=== PATIENT | female | born 1945 | race Caucasian/White ===

== ENCOUNTER 2016-10-22 12:14 | Observation (INO) | payer MEDICARE ==
[2016-10-22] MEDS ORDERED: ALBUTEROL NEBULIZED 2.5 MG/3 ML INHALATION STA (12:22)
[2016-10-22] MEDS ORDERED: methylPREDNISolone SOD SUCCI 125 MG/2 ML VIAL IV STA (12:22)
[2016-10-22] MEDS ORDERED: SODIUM CHLORIDE 0.9% 500 ML IV STA (12:22)
--- NOTE | 2016-10-22 12:29 | ED ---
General Adult HPI - General Stated complaint: URIEL Time Seen by Provider: 10/22/16 12:15 Source: RN notes reviewed - History of Present Illness Initial comments: This is a 70-year-old female with a past medical history significant for COPD. Patient states starting yesterday he started having difficulty breathing and it got worse today she went to see her primary medical care doctor Dr. Rodrigues.. Dr. Rodrigues stated that the patient was having a COPD exacerbation 1 the patient admitted to the hospital. Patient states she has been coughing and coughing up some sputum. Patient denies any chest pain or palpitations. Patient denies any headache patient denies any numbness or weakness. Patient denies any lightheadedness dizziness or near syncopal episode. Patient denies abdominal pain patient denies nausea vomiting or diarrhea. - Related Data Home Medications Medication Instructions Recorded Confirmed ALPRAZolam [Xanax] 0.25 mg PO TID PRN 10/22/16 10/22/16 Albuterol Nebulized [Ventolin 2.5 mg INHALATION RT-TID PRN 10/22/16 10/22/16 Nebulized] Budesonide/Formoterol Fumarate 2 puff INHALATION RT-BID 10/22/16 10/22/16 [Symbicort 160-4.5 Mcg Inhaler] Citalopram Hydrobromide [CeleXA] 20 mg PO DAILY 10/22/16 10/22/16 Lutein 10 mg PO DAILY 10/22/16 10/22/16 Montelukast [Singulair] 10 mg PO DAILY 10/22/16 10/22/16 Primidone [Mysoline] 25 mg PO HS 10/22/16 10/22/16 Vit C/E/Zn/Coppr/Lutein/Zeaxan 1 cap PO DAILY 10/22/16 10/22/16 [Preservision Areds 2 Softgel] Allergies Allergy/AdvReac Type Severity Reaction Status Date / Time No Known Allergies Allergy Verified 10/22/16 13:42 Review of Systems ROS Statement: Those systems with pertinent positive or pertinent negative responses have been documented in the HPI. ROS Other: All systems not noted in ROS Statement are negative. General Exam - General Exam Comments Initial Comments: GENERAL: Patient is well-developed and well-nourished. Patient is nontoxic and well- hydrated and is in mild distress. ENT: Neck is soft and supple. No significant lymphadenopathy is noted. Oropharynx is clear. Moist mucous membranes. Neck has full range of motion without eliciting any pain. EYES: The sclera were anicteric and conjunctiva were pink and moist. Extraocular movements were intact and pupils were equal round and reactive to light. Eyelids were unremarkable. PULMONARY: Diminished breath sounds throughout CARDIOVASCULAR: There is a regular rate and rhythm without any murmurs gallops or rubs. ABDOMEN: Soft and nontender with normal bowel sounds. No palpable organomegaly was noted. There is no palpable pulsatile mass. SKIN: Skin is clear with no lesions or rashes and otherwise unremarkable. NEUROLOGIC: Patient is alert and oriented x3. Cranial nerves II through XII are grossly intact. Motor and sensory are also intact. Normal speech, volume and content. Symmetrical smile. MUSCULOSKELETAL: Normal extremities with adequate strength and full range of motion. No lower extremity swelling or edema. No calf tenderness. LYMPHATICS: No significant lymphadenopathy is noted PSYCHIATRIC: Normal psychiatric evaluation. Normal interpersonal interactions appears functionally intact in deals appropriately with others. No signs of depression. No signs of anxiety. Course Vital Signs 10/22/16 10/22/16 10/22/16 12:17 12:48 13:06 Temperature 99.1 F Pulse Rate 89 88 88 Respiratory 16 Rate Blood Pressure 131/66 O2 Sat by Pulse 98 Oximetry 10/22/16 10/22/16 13:28 13:38 Temperature 98.4 F Pulse Rate 98 Respiratory 16 16 Rate Blood Pressure 118/57 O2 Sat by Pulse 95 Oximetry Medical Decision Making - Medical Decision Making EKG shows normal sinus rhythm at 97 bpm. It was 124 QRS 76 QT interval 334 QTC is 424. Patient's EKG shows no segment elevations or depressions or T-wave abdomen is noted Chest x-ray shows COPD. I will back and reevaluate the patient after she received multiple breathing treatments as well as steroids she still was diminished throughout and had some extra wheezing and the patient did not feel much better. I decided this point to admit the patient. I spoke with Dr. Michele and he agreed to admit the patient admitted the patient I wrote admitting orders. - Lab Data Result diagrams: 10/22/16 13:15 10/22/16 13:15 Lab Results 10/22/16 10/22/16 10/22/16 Range/Units 13:15 13:15 13:15 WBC 17.0 H (3.8-10.6) k/uL RBC 4.50 (3.80-5.40) m/uL Hgb 13.5 (11.4-16.0) gm/dL Hct 41.5 (34.0-46.0) % MCV 92.3 (80.0-100.0) fL MCH 30.1 (25.0-35.0) pg MCHC 32.6 (31.0-37.0) g/dL RDW 13.9 (11.5-15.5) % Plt Count 225 (150-450) k/uL Neutrophils % 94 % Lymphocytes % 3 % Monocytes % 2 % Eosinophils % 0 % Basophils % 0 % Neutrophils # 15.9 H (1.3-7.7) k/uL Lymphocytes # 0.5 L (1.0-4.8) k/uL Monocytes # 0.4 (0-1.0) k/uL Eosinophils # 0.1 (0-0.7) k/uL Basophils # 0.0 (0-0.2) k/uL PT (9.0-12.0) sec INR (<1.1) APTT (22.0-30.0) sec Sodium 138 (137-145) mmol/L Potassium 4.2 (3.5-5.1) mmol/L Chloride 98 (98-107) mmol/L Carbon Dioxide 30 (22-30) mmol/L Anion Gap 10 mmol/L BUN 12 (7-17) mg/dL Creatinine 0.54 (0.52-1.04) mg/dL Est GFR (MDRD) Af Amer >60 (>60 ml/min/1.73 sqM) Est GFR (MDRD) Non-Af >60 (>60 ml/min/1.73 sqM) Glucose 122 H (74-99) mg/dL Calcium 9.2 (8.4-10.2) mg/dL Magnesium 1.7 (1.6-2.3) mg/dL Total Bilirubin 1.1 (0.2-1.3) mg/dL AST 21 (14-36) U/L ALT 28 (9-52) U/L Alkaline Phosphatase 75 (38-126) U/L Total Creatine Kinase 101 (30-135) U/L CK-MB (CK-2) 0.8 (0.0-2.4) ng/mL CK-MB (CK-2) Rel Index 0.8 Troponin I <0.012 (0.000-0.034) ng/mL Total Protein 7.3 (6.3-8.2) g/dL Albumin 4.0 (3.5-5.0) g/dL 10/22/16 Range/Units 13:15 WBC (3.8-10.6) k/uL RBC (3.80-5.40) m/uL Hgb (11.4-16.0) gm/dL Hct (34.0-46.0) % MCV (80.0-100.0) fL MCH (25.0-35.0) pg MCHC (31.0-37.0) g/dL RDW (11.5-15.5) % Plt Count (150-450) k/uL Neutrophils % % Lymphocytes % % Monocytes % % Eosinophils % % Basophils % % Neutrophils # (1.3-7.7) k/uL Lymphocytes # (1.0-4.8) k/uL Monocytes # (0-1.0) k/uL Eosinophils # (0-0.7) k/uL Basophils # (0-0.2) k/uL PT 12.2 H (9.0-12.0) sec INR 1.2 (<1.1) APTT 25.2 (22.0-30.0) sec Sodium (137-145) mmol/L Potassium (3.5-5.1) mmol/L Chloride (98-107) mmol/L Carbon Dioxide (22-30) mmol/L Anion Gap mmol/L BUN (7-17) mg/dL Creatinine (0.52-1.04) mg/dL Est GFR (MDRD) Af Amer (>60 ml/min/1.73 sqM) Est GFR (MDRD) Non-Af (>60 ml/min/1.73 sqM) Glucose (74-99) mg/dL Calcium (8.4-10.2) mg/dL Magnesium (1.6-2.3) mg/dL Total Bilirubin (0.2-1.3) mg/dL AST (14-36) U/L ALT (9-52) U/L Alkaline Phosphatase (38-126) U/L Total Creatine Kinase (30-135) U/L CK-MB (CK-2) (0.0-2.4) ng/mL CK-MB (CK-2) Rel Index Troponin I (0.000-0.034) ng/mL Total Protein (6.3-8.2) g/dL Albumin (3.5-5.0) g/dL Critical Care Time Critical Care Time: Yes Total Critical Care Time: 35 Disposition Clinical Impression: Acute exacerbation of chronic obstructive airways disease Disposition: ADMITTED IP TO THIS HOSP Referrals: Jennifer Rodrigues MD [Primary Care Provider] - 1-2 days Time of Disposition: 14:53
--- NOTE | 2016-10-22 12:49 | XR ---
EXAMINATION TYPE: XR chest 2V DATE OF EXAM: 10/22/2016 12:43 PM COMPARISON: 09/15/2013 INDICATION: Difficulty breathing TECHNIQUE: Frontal and lateral views of the chest are obtained. FINDINGS: The heart size is normal. The pulmonary vasculature is normal. Some mild right lower lobe infiltrate is present. There is blunting of the right costophrenic angle. Small posterior pleural effusion is present. IMPRESSION: 1. Mild right lower lobe infiltrate with a minimal right pleural effusion.
[2016-10-22 13:44] LABS: Basophils % (A) 0 %; CHCM 32.6; Eosinophils # (A) 0.1 k/uL (0-0.7); Eosinophils % (A) 0 %; HCT 41.5 % (34.0-46.0); HDW 2.41; HGB 13.5 gm/dL (11.4-16.0); Luc # (Auto) 0.05; Luc % (Auto) 0; Lymphocytes # (A) 0.5 k/uL (1.0-4.8); Lymphocytes % (A) 3 %; MCH 30.1 pg (25.0-35.0); MCHC 32.6 g/dL (31.0-37.0); MCV 92.3 fL (80.0-100.0); Monocytes # (A) 0.4 k/uL (0-1.0); Monocytes % (A) 2 %; Neutrophils # (A) 15.9 k/uL (1.3-7.7); Neutrophils % (A) 94 %; RDW 13.9 % (11.5-15.5); WBC (Perox) 17.29
[2016-10-22 13:58] LABS: ALT 28 U/L (9-52); AST 21 U/L (14-36); Alkaline Phosphatase 75 U/L (38-126); Anion Gap 10 mmol/L; Blood Urea Nitrogen 12 mg/dL (7-17); Calcium 9.2 mg/dL (8.4-10.2); Carbon Dioxide 30 mmol/L (22-30); Chloride 98 mmol/L (98-107); Creatine Kinase 101 U/L (30-135); Glucose 122 mg/dL (74-99); Magnesium 1.7 mg/dL (1.6-2.3); Non-African American GFR(MDRD) >60 (>60 ml/min/1.73 sqM); Potassium 4.2 mmol/L (3.5-5.1); Sodium 138 mmol/L (137-145); Total Bilirubin 1.1 mg/dL (0.2-1.3); Total Protein 7.3 g/dL (6.3-8.2)
[2016-10-22 14:10] LABS: Creatine Kinase MB 0.8 ng/mL (0.0-2.4); Troponin I <0.012 ng/mL (0.000-0.034)
[2016-10-22 14:12] LABS: INR 1.2 (<1.1); Partial Thromboplastin Time 25.2 sec (22.0-30.0); Prothrombin Time 12.2 sec (9.0-12.0)
[2016-10-22] MEDS ORDERED: ACETAMINOPHEN TAB 325 MG TAB PO STA (15:09)
[2016-10-22] MEDS: IPRATROPIUM-ALBUTEROL 3 ML NEB INHALATION SCH ×2 (15:45→19:49)
[2016-10-22 16:24] VITALS: BMI 20.4
[2016-10-22] MEDS: methylPREDNISolone SOD SUCCI 125 MG/2 ML VIAL IV SCH (17:57)
[2016-10-23] MEDS: methylPREDNISolone SOD SUCCI 125 MG/2 ML VIAL IV SCH ×2 (02:04→05:55)
[2016-10-23] MEDS: IPRATROPIUM-ALBUTEROL 3 ML NEB INHALATION SCH ×4 (07:19→19:18)
--- NOTE | 2016-10-23 11:51 | HP ---
DATE OF ADMISSION: Patient is a 70-year-old admitted with COPD exacerbation and patient was having shortness of breath, has been going on for about 3 to 4 days and patient quit smoking years ago. Patient does have COPD with chronic hypercapnic respiratory failure, uses 2 L of oxygen at home. Patient is feeling better than yesterday, but still quite a bit short of breath. I cannot hear much of air entry into bilateral lung rocha because of which patient may need to stay a day or two more and patient follows with Dr. Webster as an outpatient. Patient occasionally coughing, not bringing up much. Denied any fever, chills and patient's chest x-ray showed minimal infiltrate in the right lower lung field. I cannot completely rule out pneumonic process. Patient does have leukocytosis. REVIEW OF SYSTEMS: CONSTITUTIONAL: No fever, no malaise, no fatigue. HEENT: No recent visual problems or hearing problems. Denied any sore throat. CARDIOVASCULAR: No chest pain, orthopnea, PND, no palpitations, no syncope. PULMONARY: As described in HPI. GASTROINTESTINAL: No diarrhea, no nausea, no vomiting, no abdominal pain. Normoactive bowel sounds. NEUROLOGICAL: No headaches, no weakness, no numbness. HEMATOLOGICAL: Denies any bleeding or petechiae. GENITOURINARY: Denies any burning micturition, frequency, or urgency. MUSCULOSKELETAL/RHEUMATOLOGICAL: Denies any joint pain, swelling, or any muscle pain. ENDOCRINE: Denies any polyuria or polydipsia. The rest of the 14 point review of systems is negative. Home medications include: 1. Xanax. 2. Albuterol. 3. Budesonide/formoterol. 4. Citalopram. 5. Montelukast. 6. Primidone. 7. Vitamin E. ALLERGIES: No known drug allergies. PAST MEDICAL HISTORY: Significant for COPD, tumor removed from the colon and anxiety, depression. FAMILY HISTORY: Significant for colon cancer. SOCIAL HISTORY: Patient quit smoking a few years ago. Denied any alcohol abuse or any drug abuse. PHYSICAL EXAMINATION: VITAL SIGNS: Temperature 97.1, pulse of 72, pulse has gone up as high as 102, respiratory rate of 18, blood pressure is 136/64, saturating at 94% on 2 L of O2 by nasal cannula although patient clinically looks tremulous and a little short of breath even at rest. GENERAL: The patient is alert and oriented x3, not in any acute distress. Well developed, well nourished. HEENT: Pupils are round and equally reacting to light. EOMI. No scleral icterus. No conjunctival pallor. Normocephalic, atraumatic. No pharyngeal erythema. No thyromegaly. CARDIOVASCULAR: S1 and S2 present. No murmurs, rubs, or gallops. PULMONARY: I did not hear much of air entry into bilateral lung rocha. No wheezing was appreciated. No crackles are appreciated. The patient is occasionally using ( ) breathing. ABDOMEN: Soft, nontender, nondistended, normoactive bowel sounds. No palpable organomegaly. MUSCULOSKELETAL: No joint swelling or deformity. EXTREMITIES: No cyanosis, clubbing, or pedal edema. NEUROLOGICAL: Gross neurological examination did not reveal any focal deficits. SKIN: No rashes. Chest x-ray was reviewed and results as mentioned above. ASSESSMENT AND PLAN: 1. Acute on chronic hypercapnic respiratory failure secondary to chronic obstructive pulmonary disease exacerbation. Continue systemic steroids, inhalational treatments. 2. Possibility of right lower lobe pneumonia, which I cannot completely rule out because of which I started her on levofloxacin. 3. Mild to moderate to protein calorie malnutrition secondary to chronic obstructive pulmonary disease. 4. Depression for which patient is on citalopram which can be continued. I am aware of the interaction of citalopram and lisinopril which is a QT prolongation, which will be monitored. Patient's primary care physician is Dr. Jennifer Rodrigues.
[2016-10-23] MEDS: LEVOFLOXACIN 500 MG TAB PO SCH (12:50)
--- NOTE | 2016-10-23 16:16 | P.CNPUL ---
History of Present Illness Consult date: 10/23/16 Reason for consult: dyspnea, COPD History of present illness: 70-year-old female patient with known history of advanced oxygen-dependent COPD was limited on Symbicort as maintenance, hospitalized for an acute COPD exacerbation. The patient started having shortness of breath. Days back and following that she started having increased cough and chest congestion and wheezing. Unable to bring up much sputum. No pleurisy. No hemoptysis. No chest pain. No swelling in the lower extremities. No change in mental status. Chest x-ray in the emergency department shows no acute pneumonia and there is hyperinflation. No nausea. No vomiting. No abdominal pain. Last hospitalization for COPD was more than 3 years ago. Otherwise, she has not had any major respiratory events over the past few years. She is an ex-smoker and she quit smoking 3 years ago Review of Systems Review of system was done and the positive finding were mentioned above in history of present illness Past Medical History Past Medical History: Cancer (colon cancer), COPD Additional Past Medical History / Comment(s): Depression, tremors and generalized anxiety disorder History of Any Multi-Drug Resistant Organisms: None Reported Past Surgical History: Hysterectomy Additional Past Surgical History / Comment(s): right colectomy for cancer, removal of a fatty tumor from the abdomen/flank Past Anesthesia/Blood Transfusion Reactions: Previous Problems w/ Anesthesia Additional Past Anesthesia/Blood Transfusion Reaction / Comment(s): pt stated her oxygen level dropped during colonoscopy 05/2016. Past Psychological History: Anxiety, Depression Smoking Status: Former smoker Past Alcohol Use History: None Reported Past Drug Use History: None Reported - Past Family History Father Family Medical History: Cancer Additional Family Medical History / Comment(s): colon cancer Daughter(s) Family Medical History: Cancer Additional Family Medical History / Comment(s): daughter from pancreatic cancer 2013. Medications and Allergies Home Medications Medication Instructions Recorded Confirmed Type ALPRAZolam [Xanax] 0.25 mg PO TID PRN 10/22/16 10/22/16 History Albuterol Nebulized [Ventolin 2.5 mg INHALATION RT-TID PRN 10/22/16 10/22/16 History Nebulized] Budesonide/Formoterol Fumarate 2 puff INHALATION RT-BID 10/22/16 10/22/16 History [Symbicort 160-4.5 Mcg Inhaler] Citalopram Hydrobromide [CeleXA] 20 mg PO DAILY 10/22/16 10/22/16 History Lutein 10 mg PO DAILY 10/22/16 10/22/16 History Montelukast [Singulair] 10 mg PO DAILY 10/22/16 10/22/16 History Primidone [Mysoline] 25 mg PO HS 10/22/16 10/22/16 History Vit C/E/Zn/Coppr/Lutein/Zeaxan 1 cap PO DAILY 10/22/16 10/22/16 History [Preservision Areds 2 Softgel] Allergies Allergy/AdvReac Type Severity Reaction Status Date / Time No Known Allergies Allergy Verified 10/22/16 13:42 Physical Exam Vitals: Vital Signs Temp Pulse Pulse Resp BP Pulse Ox 10/23/16 16:01 76 10/23/16 15:48 74 10/23/16 14:22 98.2 F 107 H 18 120/77 93 L 10/23/16 11:28 72 10/23/16 11:15 72 10/23/16 07:31 72 10/23/16 07:19 70 10/23/16 07:00 97.9 F 102 H 18 136/64 94 L 10/23/16 00:00 83 17 10/22/16 21:15 98.0 F 83 17 135/83 97 10/22/16 20:01 68 10/22/16 19:51 68 99 Intake and Output 10/23/16 10/23/16 10/23/16 06:59 14:59 22:59 Intake Total 150 Balance 150 Intake: Oral 150 Other: Voiding Method Toilet Toilet # Voids 1 1 Head exam was generally normal. There was no scleral icterus or corneal arcus. Mucous membranes were moist.Neck was supple and without jugular venous distension, thyromegaly, or carotid bruits. Carotids were easily palpable bilaterally. There was no adenopathy. Lung sounds are diminished bilaterally along with diffuse expiratory wheezes heard throughout the lung rocha bilaterally.Cardiac exam revealed the PMI to be normally situated and sized. The rhythm was regular and no extrasystoles were noted during several minutes of auscultation. The first and second heart sounds were normal and physiologic splitting of the second heart sound was noted. There were no murmurs, rubs, clicks, or gallops.Abdominal exam revealed normal bowel sounds. The abdomen was soft, non-tender, and without masses, organomegaly, or appreciable enlargement of the abdominal aorta.Examination of the extremities revealed easily palpable radial, femoral and pedal pulses. There was no cyanosis, clubbing or edema. Results - Laboratory Findings CBC and BMP: 10/22/16 13:15 10/22/16 13:15 PT/INR, D-dimer PT 12.2 sec (9.0-12.0) H 10/22/16 13:15 INR 1.2 (<1.1) 10/22/16 13:15 - Diagnostic Findings Chest x-ray: image reviewed Assessment and Plan Plan: Assessment 1 acute COPD exacerbation/acute bronchitis 2 shortness of breath secondary to above 3 chronic hypoxic respiratory failure secondary to COPD, advanced 4 generalized anxiety disorder/depression 5 essential tremors Plan No evidence of any pneumonia. Collect a sputum Gram stain and culture, the patient with empiric antibiotics with Levaquin regarding potential acute bronchitis. Continue bronchodilators. Continue systemic steroids. Anticipate improvement within the next 24-48 hours. Resume outpatient medications. Heparin subcu for DVT prophylaxis.
[2016-10-23] MEDS: ALPRAZolam 0.25 MG TAB PO PRN ×2 (16:28→22:16)
[2016-10-23] MEDS: methylPREDNISolone SOD SUCCI 40 MG/ML 1 ML VIAL IV SCH ×2 (16:28→22:28)
[2016-10-23] MEDS: CITALOPRAM HYDROBROMIDE 20 MG TAB PO SCH (16:28)
[2016-10-23] MEDS: MONTELUKAST 10 MG TAB PO SCH (16:28)
[2016-10-23] MEDS: SYMBICORT 160-4.5 MCG INHALER INHALATION SCH (19:18)
[2016-10-23] MEDS: PRIMIDONE 25 MG TAB PO SCH (22:27)
[2016-10-24] MEDS: SYMBICORT 160-4.5 MCG INHALER INHALATION SCH ×2 (07:23→19:11)
[2016-10-24] MEDS: IPRATROPIUM-ALBUTEROL 3 ML NEB INHALATION SCH ×4 (07:23→19:14)
[2016-10-24] MEDS: methylPREDNISolone SOD SUCCI 40 MG/ML 1 ML VIAL IV SCH ×3 (08:37→23:19)
[2016-10-24] MEDS: VIT A,C & E-LUTEIN-MINERALS 1 EACH TAB PO SCH (08:38)
[2016-10-24] MEDS: CITALOPRAM HYDROBROMIDE 20 MG TAB PO SCH (08:38)
[2016-10-24] MEDS: LEVOFLOXACIN 500 MG TAB PO SCH (08:38)
[2016-10-24] MEDS: MONTELUKAST 10 MG TAB PO SCH (08:38)
[2016-10-24] MEDS: ALPRAZolam 0.25 MG TAB PO PRN (08:44)
[2016-10-24] MEDS ORDERED: CITALOPRAM HYDROBROMIDE 20 MG TAB PO SCH (09:00)
[2016-10-24] MEDS ORDERED: MONTELUKAST 10 MG TAB PO SCH (09:00)
--- NOTE | 2016-10-24 13:19 | PN ---
The patient is a 70-year-old admitted with COPD exacerbation. Patient still does not have any good entry into bilateral lung rocha. No wheezing was appreciated. REVIEW OF SYSTEMS: CARDIOVASCULAR: No chest pain, no orthopnea, no PND, no palpitations. RESPIRATORY: Minimal improvement compared to yesterday. GASTROINTESTINAL: No diarrhea, nausea or vomiting. No abdominal pain. Normoactive bowel sounds. NEUROLOGIC: No headaches, no weakness, no numbness. Medications were reviewed. PHYSICAL EXAMINATION: Temperature 97.5, pulse 70, respiratory rate of 20, blood pressure 131/70, saturating at 93% on 2 L O2 nasal cannula. GENERAL: The patient is very thin built, alert and oriented x3. HEENT: Pupils are round and equally reacting to light. EOMI. No scleral icterus. No conjunctival pallor. Normocephalic, atraumatic. No pharyngeal erythema. No thyromegaly. CARDIOVASCULAR: S1 and S2 present. No murmurs, rubs, or gallops. LUNG EXAMINATION: With no significant air entry into bilateral lung rocha. I believe there is minimal improvement in air entry. ABDOMEN: Soft, nontender, nondistended, normoactive bowel sounds. No palpable organomegaly. MUSCULOSKELETAL: No joint swelling or deformity. EXTREMITIES: No cyanosis, clubbing, or pedal edema. NEUROLOGICAL: Gross neurological examination did not reveal any focal deficits. SKIN: No rashes. LABORATORY DATA: None available. ASSESSMENT AND PLAN: 1. Acute on chronic hypercapnic respiratory failure secondary to chronic obstructive pulmonary disease exacerbation. 2. Possibility of right lower lobe pneumonia, which cannot be ruled out because of which I started her on Levaquin. 3. Mild to moderate protein calorie malnutrition. 4. Depression. Continue with systemic steroids, inhalational steroids. If patient improves possibility of discharge tomorrow. Patient is on 2 L at this point of time and saturating at 93%.
--- NOTE | 2016-10-24 16:43 | P.PN ---
Subjective This is a very pleasant 70-year-old female patient who follows with Dr. Rodrigues as her primary care physician. She does have a history of advanced oxygen- dependent chronic obstructive pulmonary disease and was admitted here on 2016 for an acute exacerbation of the same. Her chest x-ray revealed no evidence of acute pneumonia. There was evidence of hyperinflation secondary to her emphysema. She is seen again today in follow-up. She is awake and alert in no acute distress. She is doing better today as compared to yesterday. She is maintaining good O2 saturations in the upper 90s on 2 L/m per nasal cannula. She's been afebrile. She is not quite back to her baseline. Objective - Vital Signs Vital signs: Vital Signs Temp 97.2 F L 10/24/16 15:00 Pulse 68 10/24/16 15:30 Resp 20 10/24/16 15:00 BP 119/64 10/24/16 15:00 Pulse Ox 97 10/24/16 15:00 Intake & Output 10/23/16 10/24/16 10/24/16 18:59 06:59 18:59 Intake Total 380 Balance 380 Intake: Oral 380 Other: Voiding Method Toilet Toilet Toilet # Voids 1 1 - Exam GENERAL EXAM: Alert, comfortable in no apparent distress. HEAD: Normocephalic. EYES: Normal reaction of pupils, equal size. NOSE: Clear with pink turbinates. THROAT: No erythema or exudates. NECK: No masses, no JVD. CHEST: No chest wall deformity. LUNGS: Equal air entry with bilateral end expiratory wheeze. Diminished throughout. CVS: S1 and S2 normal with no audible murmurs, regular rhythm. ABDOMEN: No hepatosplenomegaly, normal bowel sounds, no guarding or rigidity. SPINE: No scoliosis or deformity SKIN: No rashes CENTRAL NERVOUS SYSTEM: No focal deficits, tone is normal in all 4 extremities. Extremities: There is no significant peripheral edema. No clubbing, no cyanosis. Peripheral pulses are intact. - Labs CBC & Chem 7: 10/22/16 13:15 10/22/16 13:15 Assessment and Plan Plan: Impression: #1 Acute exacerbation of chronic obstructive pulmonary disease complicated by acute tracheobronchitis. #2 Dyspnea secondary to above. #3 Acute on chronic hypoxic respiratory failure secondary to above. #4 Generalized anxiety disorder/depression. #5 Essential tremors. Plan: The patient was seen and evaluated by Dr. Webster. She is improved but not quite back to her baseline. We'll continue with her current medications. Hopefully plan for discharge in the next 24 hours. We'll increase her activity as tolerated. We'll continue to follow make further recommendations based on her clinical status.
[2016-10-24] MEDS: PRIMIDONE 25 MG TAB PO SCH (20:36)
[2016-10-24 23:45] VITALS: RESP 18
[2016-10-25] MEDS: SYMBICORT 160-4.5 MCG INHALER INHALATION SCH (07:22)
[2016-10-25] MEDS: IPRATROPIUM-ALBUTEROL 3 ML NEB INHALATION SCH ×2 (07:22→11:17)
[2016-10-25] MEDS: CITALOPRAM HYDROBROMIDE 20 MG TAB PO SCH (08:58)
[2016-10-25] MEDS: methylPREDNISolone SOD SUCCI 40 MG/ML 1 ML VIAL IV SCH (08:58)
[2016-10-25] MEDS: LEVOFLOXACIN 500 MG TAB PO SCH (08:58)
[2016-10-25] MEDS: VIT A,C & E-LUTEIN-MINERALS 1 EACH TAB PO SCH (08:58)
[2016-10-25] MEDS: MONTELUKAST 10 MG TAB PO SCH (08:58)
[2016-10-25 09:20] VITALS: BP 153/79; TEMP 97.6
[2016-10-25 11:29] VITALS: PULSE 92
--- NOTE | 2016-10-25 13:19 | P.PN ---
Subjective This is a very pleasant 70-year-old female patient who follows with Dr. Rodrigues as her primary care physician. She does have a history of advanced oxygen- dependent chronic obstructive pulmonary disease and was admitted here on 2016 for an acute exacerbation of the same. Her chest x-ray revealed no evidence of acute pneumonia. There was evidence of hyperinflation secondary to her emphysema. She is seen again today 10/25/2016 in follow-up. She is awake and alert in no acute distress. She is doing better today as compared to yesterday. She is maintaining good O2 saturations in the upper 90s on 2 L/m per nasal cannula. She's been afebrile. She is nearly back to her baseline. She is anxious to go home. Objective - Vital Signs Vital signs: Vital Signs Temp 97.6 F 10/25/16 07:00 Pulse 92 10/25/16 11:29 Resp 18 10/25/16 08:00 BP 153/79 10/25/16 07:00 Pulse Ox 99 10/25/16 07:00 Intake & Output 10/24/16 10/25/16 10/25/16 18:59 06:59 18:59 Intake Total 380 Balance 380 Intake: Oral 380 Other: Voiding Method Toilet Toilet Toilet # Voids 2 1 - Exam GENERAL EXAM: Alert, comfortable in no apparent distress. HEAD: Normocephalic. EYES: Normal reaction of pupils, equal size. NOSE: Clear with pink turbinates. THROAT: No erythema or exudates. NECK: No masses, no JVD. CHEST: No chest wall deformity. LUNGS: Equal air entry with bilateral end expiratory wheeze. Diminished throughout. CVS: S1 and S2 normal with no audible murmurs, regular rhythm. ABDOMEN: No hepatosplenomegaly, normal bowel sounds, no guarding or rigidity. SPINE: No scoliosis or deformity SKIN: No rashes CENTRAL NERVOUS SYSTEM: No focal deficits, tone is normal in all 4 extremities. Extremities: There is no significant peripheral edema. No clubbing, no cyanosis. Peripheral pulses are intact. - Labs CBC & Chem 7: 10/22/16 13:15 10/22/16 13:15 Assessment and Plan Plan: Impression: #1 Acute exacerbation of chronic obstructive pulmonary disease complicated by acute tracheobronchitis. #2 Dyspnea secondary to above. #3 Acute on chronic hypoxic respiratory failure secondary to above. #4 Generalized anxiety disorder/depression. #5 Essential tremors. Plan: The patient was seen and evaluated by Dr. Webster. She has improved and is nearly back to her baseline. She is cleared for discharge from the pulmonary standpoint. She'll continue with her current medications including a prednisone taper and complete her course of antibiotics in the form of Levaquin. She'll be seen in our office with Dr. Whelan 1 to 2 weeks' time. She is encouraged to call sooner with any recurrence of symptoms or other questions or concerns.
--- NOTE | 2016-10-25 18:10 | DS ---
DATE OF ADMISSION: 10/22/2016 DATE OF DISCHARGE: 10/25/2016 Patient is admitted with chronic obstructive pulmonary disease exacerbation. Patient's respiratory status is at her baseline. Patient vital signs are stable. PHYSICAL EXAMINATION: GENERAL: The patient is alert and oriented x3, not in any acute distress. Well developed, well nourished. HEENT: Pupils are round and equally reacting to light. EOMI. No scleral icterus. No conjunctival pallor. Normocephalic, atraumatic. No pharyngeal erythema. No thyromegaly. CARDIOVASCULAR: S1 and S2 present. No murmurs, rubs, or gallops. PULMONARY: Minimal air into bilateral lung rocha. The patient has advanced COPD, uses 3.5 L. This is her baseline. ABDOMEN: Soft, nontender, nondistended, normoactive bowel sounds. No palpable organomegaly. MUSCULOSKELETAL: No joint swelling or deformity. EXTREMITIES: No cyanosis, clubbing, or pedal edema. NEUROLOGICAL: Gross neurological examination did not reveal any focal deficits. SKIN: No rashes. Patient is being discharged today in stable medical condition to home. ASSESSMENT AND PLAN: 1. Acute on chronic hypercapnic respiratory failure secondary to chronic obstructive pulmonary disease exacerbation. 2. Possibility of the right lower lobe pneumonia which is low. Patient may have tracheobronchitis, we will give her 3 days of Levaquin. 3. Mild to moderate protein calorie malnutrition. 4. Depression. 5. Nicotine Abuse. Counseling was provided. Patient will be discharged today in stable medical condition to home. Activity as tolerated. Please refer to my depart summary for further details of discharge summary. Discharge diet regular. Spent greater than 35 minutes in total discharge process.
== END 2016-10-25 13:25 | disposition home or self-care (01) ==
LOC: EC 12:14 → 5MS5E 14:54
PROVIDERS: ADMIT Hospitalist; ATTEND Hospitalist
DX: J44.0 Chronic obstructive pulmonary disease with (acute) lower respiratory infection (principal); J20.9 Acute bronchitis, unspecified; J44.1 Chronic obstructive pulmonary disease with (acute) exacerbation; J96.22 Acute and chronic respiratory failure with hypercapnia; J96.21 Acute and chronic respiratory failure with hypoxia; F41.1 Generalized anxiety disorder; G25.0 Essential tremor; E44.0 Moderate protein-calorie malnutrition; F32.9 Major depressive disorder, single episode, unspecified; D72.829 Elevated white blood cell count, unspecified; Z99.81 Dependence on supplemental oxygen; Z68.20 Body mass index [BMI] 20.0-20.9, adult; Z87.891 Personal history of nicotine dependence; Z85.038 Personal history of other malignant neoplasm of large intestine; Z79.51 Long term (current) use of inhaled steroids; Z79.899 Other long term (current) drug therapy; Z80.0 Family history of malignant neoplasm of digestive organs
CPT/HCPCS: 36415; 94640 ×8; 94760; 93005; 80053; 82550; 82553; 83735; 84484; 85025; 85610; 85730; 87040; 71020; 99291; 96374; 96361 ×3; G0378 ×4; J2920 ×3; J2930 ×2; 96376

== ENCOUNTER 2016-11-27 10:04 | Inpatient (IN) | payer MEDICARE ==
[2016-11-27] MEDS ORDERED: ACETAMINOPHEN TAB 500 MG TAB PO STA (10:29)
[2016-11-27] MEDS ORDERED: SODIUM CHLORIDE 0.9% 1,000 ML IV ONE (10:29)
[2016-11-27] MEDS ORDERED: methylPREDNISolone SOD SUCCI 125 MG/2 ML VIAL IV STA (10:31)
--- NOTE | 2016-11-27 10:31 | ED ---
General Adult HPI - General Chief complaint: Shortness of Breath Stated complaint: Diff breathing Time Seen by Provider: 11/27/16 10:10 Source: patient, RN notes reviewed Mode of arrival: EMS Limitations: no limitations - History of Present Illness Initial comments: This is a 70-year-old female presents emergency department with past medical history significant for COPD. Patient went to Dr. Rodrigues's office today and was having hard time breathing Dr. Rodrigues states her pulse ox was dropping into the 70s at times she did give the patient a breathing treatment in the office but it did not clear up very good. According Dr. Rodrigues she still is having very shallow breathing and having a difficult time breathing. Patient denies any recent fever chills or cough. Patient denies any abdominal pain patient denies any nausea or vomiting. Patient denies any lightheadedness dizziness or near syncopal episode. Patient does states she has a moderate headache but no numbness or weakness. - Related Data Home Medications Medication Instructions Recorded Confirmed ALPRAZolam [Xanax] 0.25 mg PO TID PRN 10/22/16 11/27/16 Albuterol Nebulized [Ventolin 2.5 mg INHALATION RT-BID 10/22/16 11/27/16 Nebulized] Budesonide/Formoterol Fumarate 2 puff INHALATION RT-BID 10/22/16 11/27/16 [Symbicort 160-4.5 Mcg Inhaler] Citalopram Hydrobromide [CeleXA] 20 mg PO DAILY 10/22/16 11/27/16 Montelukast [Singulair] 10 mg PO DAILY 10/22/16 11/27/16 Primidone [Primidone] 25 mg PO HS 11/27/16 11/27/16 Allergies Allergy/AdvReac Type Severity Reaction Status Date / Time No Known Allergies Allergy Verified 10/22/16 13:42 Review of Systems ROS Statement: Those systems with pertinent positive or pertinent negative responses have been documented in the HPI. ROS Other: All systems not noted in ROS Statement are negative. Past Medical History Past Medical History: Cancer, COPD Additional Past Medical History / Comment(s): Depression, tremors and generalized anxiety disorder History of Any Multi-Drug Resistant Organisms: None Reported Past Surgical History: Hysterectomy Additional Past Surgical History / Comment(s): right colectomy for cancer, removal of a fatty tumor from the abdomen/flank Past Anesthesia/Blood Transfusion Reactions: Previous Problems w/ Anesthesia Additional Past Anesthesia/Blood Transfusion Reaction / Comment(s): pt stated her oxygen level dropped during colonoscopy 05/2016. Past Psychological History: Anxiety, Depression Smoking Status: Former smoker Past Alcohol Use History: None Reported Past Drug Use History: None Reported - Past Family History Father Family Medical History: Cancer Additional Family Medical History / Comment(s): colon cancer Daughter(s) Family Medical History: Cancer Additional Family Medical History / Comment(s): daughter from pancreatic cancer 2013. General Exam - General Exam Comments Initial Comments: GENERAL: Patient is well-developed and well-nourished. Patient is nontoxic and well- hydrated and is in mild distress. ENT: Neck is soft and supple. No significant lymphadenopathy is noted. Oropharynx is clear. Moist mucous membranes. Neck has full range of motion without eliciting any pain. EYES: The sclera were anicteric and conjunctiva were pink and moist. Extraocular movements were intact and pupils were equal round and reactive to light. Eyelids were unremarkable. PULMONARY: Decreased breath sounds throughout no wheezing heard at this time CARDIOVASCULAR: There is a regular rate and rhythm without any murmurs gallops or rubs. ABDOMEN: Soft and nontender with normal bowel sounds. No palpable organomegaly was noted. There is no palpable pulsatile mass. SKIN: Skin is clear with no lesions or rashes and otherwise unremarkable. NEUROLOGIC: Patient is alert and oriented x3. Cranial nerves II through XII are grossly intact. Motor and sensory are also intact. Normal speech, volume and content. Symmetrical smile. MUSCULOSKELETAL: Normal extremities with adequate strength and full range of motion. No lower extremity swelling or edema. No calf tenderness. LYMPHATICS: No significant lymphadenopathy is noted PSYCHIATRIC: Normal psychiatric evaluation. Limitations: no limitations Course Vital Signs 11/27/16 10:11 Temperature 99.8 F H Pulse Rate 97 Respiratory 22 Rate Blood Pressure 149/82 O2 Sat by Pulse 96 Oximetry Medical Decision Making - Medical Decision Making EKG shows normal sinus rhythm at 95 bpm RI interval is 128 QRS 74 QT interval 312 QTC is 392. Patient's EKG shows no ST segment elevation or depression or T- wave abdomen is noted. Chest x-ray showed no acute abnormality. Patient received steroids here in the emergency department. I went back and reevaluated the patient she was feeling better but still has migratory wheezing. Dr. Rodrigues was contacted and she wanted the patient admitted I spoke with Dr. Gonzalez he agreed to admit the patient I admitted the patient - Lab Data Result diagrams: 11/27/16 10:55 11/27/16 10:55 Lab Results 11/27/16 11/27/16 11/27/16 Range/Units 10:55 10:55 10:55 WBC 8.1 (3.8-10.6) k/uL RBC 3.80 (3.80-5.40) m/uL Hgb 11.6 (11.4-16.0) gm/dL Hct 36.0 (34.0-46.0) % MCV 94.7 (80.0-100.0) fL MCH 30.6 (25.0-35.0) pg MCHC 32.2 (31.0-37.0) g/dL RDW 14.2 (11.5-15.5) % Plt Count 239 (150-450) k/uL Neutrophils % 88 % Lymphocytes % 6 % Monocytes % 5 % Eosinophils % 0 % Basophils % 0 % Neutrophils # 7.1 (1.3-7.7) k/uL Lymphocytes # 0.5 L (1.0-4.8) k/uL Monocytes # 0.4 (0-1.0) k/uL Eosinophils # 0.0 (0-0.7) k/uL Basophils # 0.0 (0-0.2) k/uL PT (9.0-12.0) sec INR (<1.1) APTT (22.0-30.0) sec Sodium 138 (137-145) mmol/L Potassium 4.3 (3.5-5.1) mmol/L Chloride 101 (98-107) mmol/L Carbon Dioxide 27 (22-30) mmol/L Anion Gap 10 mmol/L BUN 13 (7-17) mg/dL Creatinine 0.51 L (0.52-1.04) mg/dL Est GFR (MDRD) Af Amer >60 (>60 ml/min/1.73 sqM) Est GFR (MDRD) Non-Af >60 (>60 ml/min/1.73 sqM) Glucose 129 H (74-99) mg/dL Plasma Lactic Acid Braden (0.7-2.0) mmol/L Calcium 8.7 (8.4-10.2) mg/dL Total Bilirubin 1.1 (0.2-1.3) mg/dL AST 19 (14-36) U/L ALT 30 (9-52) U/L Alkaline Phosphatase 65 (38-126) U/L Total Creatine Kinase 58 (30-135) U/L CK-MB (CK-2) 0.6 (0.0-2.4) ng/mL CK-MB (CK-2) Rel Index 1.0 Troponin I <0.012 (0.000-0.034) ng/mL Total Protein 6.5 (6.3-8.2) g/dL Albumin 3.4 L (3.5-5.0) g/dL 11/27/16 11/27/16 Range/Units 10:55 10:55 WBC (3.8-10.6) k/uL RBC (3.80-5.40) m/uL Hgb (11.4-16.0) gm/dL Hct (34.0-46.0) % MCV (80.0-100.0) fL MCH (25.0-35.0) pg MCHC (31.0-37.0) g/dL RDW (11.5-15.5) % Plt Count (150-450) k/uL Neutrophils % % Lymphocytes % % Monocytes % % Eosinophils % % Basophils % % Neutrophils # (1.3-7.7) k/uL Lymphocytes # (1.0-4.8) k/uL Monocytes # (0-1.0) k/uL Eosinophils # (0-0.7) k/uL Basophils # (0-0.2) k/uL PT 10.6 (9.0-12.0) sec INR 1.0 (<1.1) APTT 19.1 L (22.0-30.0) sec Sodium (137-145) mmol/L Potassium (3.5-5.1) mmol/L Chloride (98-107) mmol/L Carbon Dioxide (22-30) mmol/L Anion Gap mmol/L BUN (7-17) mg/dL Creatinine (0.52-1.04) mg/dL Est GFR (MDRD) Af Amer (>60 ml/min/1.73 sqM) Est GFR (MDRD) Non-Af (>60 ml/min/1.73 sqM) Glucose (74-99) mg/dL Plasma Lactic Acid Braden 1.0 (0.7-2.0) mmol/L Calcium (8.4-10.2) mg/dL Total Bilirubin (0.2-1.3) mg/dL AST (14-36) U/L ALT (9-52) U/L Alkaline Phosphatase (38-126) U/L Total Creatine Kinase (30-135) U/L CK-MB (CK-2) (0.0-2.4) ng/mL CK-MB (CK-2) Rel Index Troponin I (0.000-0.034) ng/mL Total Protein (6.3-8.2) g/dL Albumin (3.5-5.0) g/dL Disposition Clinical Impression: COPD exacerbation Disposition: ADMITTED IP TO THIS [facility] Time of Disposition: 12:28
--- NOTE | 2016-11-27 11:22 | XR ---
EXAMINATION TYPE: XR chest 2V DATE OF EXAM: 11/27/2016 11:16 AM HISTORY: Difficulty breathing. REFERENCE: Previous study dated 10/22/2016. FINDINGS: The lungs are overinflated. The heart is not enlarged. There is some chronic increased dens ity at the lung bases bilaterally. This may be in part due to overlying soft tissues. No definite inf iltrate is seen. Pleural spaces are clear. IMPRESSION: 1. COPD. 2. STABLE INCREASED OPACITY AT THE LUNG BASES, LIKELY SECONDARY TO OVERLYING SOFT TISSUES.
[2016-11-27 11:32] LABS: Basophils % (A) 0 %; CH 30.7; CHCM 32.5; Eosinophils % (A) 0 %; HDW 2.33; HGB 11.6 gm/dL (11.4-16.0); Luc % (Auto) 1; Lymphocytes # (A) 0.5 k/uL (1.0-4.8); Lymphocytes % (A) 6 %; MCH 30.6 pg (25.0-35.0); MCHC 32.2 g/dL (31.0-37.0); MCV 94.7 fL (80.0-100.0); Mean Platelet Volume 7.6; Monocytes # (A) 0.4 k/uL (0-1.0); Monocytes % (A) 5 %; Neutrophils # (A) 7.1 k/uL (1.3-7.7); Neutrophils % (A) 88 %; RDW 14.2 % (11.5-15.5); WBC 8.1 k/uL (3.8-10.6); WBC (Perox) 7.98
[2016-11-27 11:45] LABS: ALT 30 U/L (9-52); AST 19 U/L (14-36); Alkaline Phosphatase 65 U/L (38-126); Anion Gap 10 mmol/L; Blood Urea Nitrogen 13 mg/dL (7-17); Calcium 8.7 mg/dL (8.4-10.2); Carbon Dioxide 27 mmol/L (22-30); Chloride 101 mmol/L (98-107); Glucose 129 mg/dL (74-99); Non-African American GFR(MDRD) >60 (>60 ml/min/1.73 sqM); Potassium 4.3 mmol/L (3.5-5.1); Sodium 138 mmol/L (137-145); Total Bilirubin 1.1 mg/dL (0.2-1.3); Total Protein 6.5 g/dL (6.3-8.2)
[2016-11-27 11:50] LABS: Prothrombin Time 10.6 sec (9.0-12.0)
[2016-11-27 11:56] LABS: Partial Thromboplastin Time 19.1 sec (22.0-30.0)
[2016-11-27 11:58] LABS: Creatine Kinase 58 U/L (30-135)
[2016-11-27 12:10] LABS: Creatine Kinase MB 0.6 ng/mL (0.0-2.4); Troponin I <0.012 ng/mL (0.000-0.034)
[2016-11-27] MEDS ORDERED: KETOROLAC 60 MG/2 ML VIAL IVP STA (12:28)
[2016-11-27] MEDS ORDERED: IPRATROPIUM-ALBUTEROL 3 ML NEB INHALATION PRN ×2 (12:28→14:37)
[2016-11-27 13:43] VITALS: BMI 21.9
[2016-11-27] MEDS ORDERED: ALPRAZolam 0.25 MG TAB PO PRN (14:38)
[2016-11-27] MEDS ORDERED: ACETAMINOPHEN TAB 325 MG TAB PO PRN (14:40)
[2016-11-27] MEDS ORDERED: traMADol 50 MG TAB PO PRN (14:42)
[2016-11-27] MEDS: CITALOPRAM HYDROBROMIDE 20 MG TAB PO SCH (15:26)
[2016-11-27] MEDS: PANTOPRAZOLE 40 MG/10 ML VIAL IVP SCH (15:27)
[2016-11-27] MEDS: IPRATROPIUM-ALBUTEROL 3 ML NEB INHALATION SCH ×2 (15:33→20:35)
[2016-11-27] MEDS ORDERED: HYDROcodone/APAP 5-325MG 1 EACH TAB PO PRN (16:40)
[2016-11-27] MEDS: LEVOFLOXACIN 500MG-D5W PMX 500 MG in DEXTROSE/WATER 1 100ML.BAG IVPB SCH (17:32)
[2016-11-27] MEDS: methylPREDNISolone SOD SUCCI 125 MG/2 ML VIAL IV SCH ×2 (17:33→23:22)
--- NOTE | 2016-11-27 17:33 | HP ---
DATE OF ADMISSION: CHIEF COMPLAINT: Shortness of breath. HISTORY OF PRESENT ILLNESS: This 70-year-old woman with a past medical history of multiple medical problems, including COPD, history of DJD, history of tracheobronchitis, history of chronic respiratory failure, history of colon cancer surgery, history of sinusitis, macular degeneration, history of bowel resection, hysterectomy, tubal ligation, history of anxiety, depression, being followed by Dr. Rodrigues and Dr. Yuan in the outpatient setting, was complaining of shortness of breath and cough and sputum for the past several days. Patient was seen in Dr. Rodrigues's office and her pulse ox was found to be in the 70s, apparently, and the patient was transferred to [facility] for further evaluation and treatment. There is no history of any fever, rigor or chills, no history of headache, loss of consciousness, seizures. The patient has not taken a flu shot this year. PAST MEDICAL HISTORY: 1. History of COPD. 2. History of DJD. 3. History of tracheobronchitis. 4. History of bowel resection. 5. History of anxiety, depression. Medications prior to admission include: 1. Primidone 25 mg at bedtime. 2. Celexa 20 mg p.o. daily. 3. Ventolin 2.5 b.i.d. 4. Singulair 10 mg p.o. daily. 5. Symbicort 160/4.5 two puffs b.i.d. 6. Xanax 0.25 t.i.d. p.r.n. ALLERGIES: NONE. FAMILY HISTORY: History of cancer. Father of colon cancer at the age of 71. SOCIAL HISTORY: Previous history of smoking. No current smoking or alcohol intake. REVIEW OF SYSTEMS: ENT: No diminished hearing. No diminished vision. CARDIOVASCULAR SYSTEM: No angina, palpitations. RESPIRATORY SYSTEM: As mentioned earlier. GI: No nausea. : No dysuria. NERVOUS SYSTEM: No numbness or weakness. ALLERGY/IMMUNOLOGY: No asthma, hayfever. MUSCULOSKELETAL: As mentioned earlier. HEMATOLOGY/ONCOLOGY: No history of anemia. ENDOCRINE: No history of diabetes, hypothyroidism. CONSTITUTIONAL: As mentioned earlier. DERMATOLOGY: Negative. RHEUMATOLOGY: Negative. PSYCHIATRY: As mentioned earlier. PHYSICAL EXAMINATION: Patient is alert and oriented x3. Pulse is 92, blood pressure 142/84, respiration 18, temperature 98.1, pulse ox 97% on 3 L. HEENT: Conjunctivae normal. Oral mucosa moist. NECK: No jugular venous distention. No carotid bruit. No lymph node enlargement. CARDIOVASCULAR SYSTEM: S1, S2 muffled. No S3. No S4. RESPIRATORY SYSTEM: Breath sounds diminished at the bases. Bilateral scattered rhonchi and crackles. Breathing efforts are markedly increased. Expiratory wheezing also present. ABDOMEN: Soft, nontender. No mass palpable. LEGS: No edema. No swelling. NERVOUS SYSTEM: Higher function as mentioned earlier. Moves all 4 limbs. No focal motor or sensory deficits. LYMPHATICS: No lymph node palpable in neck, axilla or groin. SKIN: No ulcer, rash, bleeding. JOINTS: No active deforming arthropathy. LABS: CBC within normal limits. APTT 19.1. BMP: Glucose 129, creatinine 0.51. Albumin 3.4. ASSESSMENT: 1. Chronic obstructive pulmonary disease, acute exacerbation, with acute purulent tracheobronchitis. 2. Increased random blood sugar. 3. History of degenerative joint disease. 4. History of chronic respiratory failure with hypoxic respiratory failure with oxygen 2 L nasal cannula at home. 5. History of colon cancer surgery. 6. History of macular degeneration. 7. History of degenerative joint disease. 8. History of bowel resection. 9. History of anxiety, depression not otherwise specified. 10. History of nicotine dependence. 11. FULL CODE. RECOMMENDATIONS AND DISCUSSION: In this 70-year-old woman who presented with multiple complex medical issues, we will monitor the patient closely, continue the current medications, optimize bronchodilator treatment, empiric antibiotics, IV steroids. Monitor blood sugars closely. DVT prophylaxis. Pulmonary consult with Dr. Yuan. Resume the home medications. Guarded prognosis because of multiple complex medical issues. Further recommendations to follow. A copy of this dictation is being forwarded to Dr. Rodrigues, who is the primary physician.
[2016-11-27 17:57] LABS: Glucose,Whole Blood 192 mg/dL (75-99)
[2016-11-27] MEDS: INSULIN LISPRO (humaLOG) 300 UNIT/3 ML VIAL SQ SCH ×2 (18:36→21:22)
[2016-11-27 19:51] LABS: Hemoglobin A1C 5.6 % (4.2-6.1)
[2016-11-27] MEDS: SYMBICORT 160-4.5 MCG INHALER INHALATION SCH (20:35)
[2016-11-27] MEDS ORDERED: TEMAZEPAM 15 MG CAP PO PRN (21:00)
[2016-11-27 21:03] LABS: Glucose,Whole Blood 151 mg/dL (75-99)
[2016-11-27] MEDS: MONTELUKAST 10 MG TAB PO SCH (21:22)
[2016-11-27] MEDS: PRIMIDONE 25 MG TAB PO SCH (21:22)
[2016-11-27] MEDS: MELATONIN 3 MG TABLET PO SCH (21:22)
[2016-11-27] MEDS: HEPARIN SODIUM,PORCINE 5,000 UNIT/ML 1 ML VIAL SQ SCH (21:22)
[2016-11-28] MEDS: methylPREDNISolone SOD SUCCI 125 MG/2 ML VIAL IV SCH ×2 (05:59→12:40)
[2016-11-28 07:32] LABS: Glucose,Whole Blood 144 mg/dL (75-99)
[2016-11-28] MEDS: HEPARIN SODIUM,PORCINE 5,000 UNIT/ML 1 ML VIAL SQ SCH ×2 (07:52→20:55)
[2016-11-28] MEDS: INSULIN LISPRO (humaLOG) 300 UNIT/3 ML VIAL SQ SCH ×4 (07:52→20:56)
[2016-11-28] MEDS: MONTELUKAST 10 MG TAB PO SCH (07:52)
[2016-11-28] MEDS: PANTOPRAZOLE 40 MG/10 ML VIAL IVP SCH (07:53)
[2016-11-28] MEDS: CITALOPRAM HYDROBROMIDE 20 MG TAB PO SCH (07:53)
[2016-11-28] MEDS: SYMBICORT 160-4.5 MCG INHALER INHALATION SCH ×2 (07:58→21:11)
[2016-11-28] MEDS: IPRATROPIUM-ALBUTEROL 3 ML NEB INHALATION SCH ×4 (07:58→21:11)
[2016-11-28 09:38] LABS: Basophils % (A) 0 %; CH 30.4; CHCM 31.7; Eosinophils % (A) 0 %; HCT 35.9 % (34.0-46.0); HDW 2.33; HGB 11.3 gm/dL (11.4-16.0); Luc # (Auto) 0.03; Luc % (Auto) 0; Lymphocytes # (A) 0.4 k/uL (1.0-4.8); Lymphocytes % (A) 5 %; MCH 30.4 pg (25.0-35.0); MCHC 31.5 g/dL (31.0-37.0); MCV 96.4 fL (80.0-100.0); Mean Platelet Volume 6.9; Monocytes # (A) 0.2 k/uL (0-1.0); Monocytes % (A) 3 %; Neutrophils # (A) 6.9 k/uL (1.3-7.7); Neutrophils % (A) 92 %; RBC 3.72 m/uL (3.80-5.40); WBC 7.5 k/uL (3.8-10.6); WBC (Perox) 8.18
[2016-11-28 09:59] LABS: Anion Gap 10 mmol/L; Blood Urea Nitrogen 19 mg/dL (7-17); Calcium 9.2 mg/dL (8.4-10.2); Carbon Dioxide 26 mmol/L (22-30); Chloride 100 mmol/L (98-107); Glucose 170 mg/dL (74-99); Non-African American GFR(MDRD) >60 (>60 ml/min/1.73 sqM); Potassium 4.6 mmol/L (3.5-5.1); Sodium 136 mmol/L (137-145)
[2016-11-28 12:16] LABS: Glucose,Whole Blood 174 mg/dL (75-99)
[2016-11-28] MEDS: MULTIVITAMINS, THERA 1 EACH TAB PO SCH (12:40)
--- NOTE | 2016-11-28 13:26 | P.CNPUL ---
History of Present Illness Consult date: 11/28/16 Requesting physician: Nic Gonzalez Reason for consult: COPD Chief complaint: Shortness of breath History of present illness: This is a very pleasant 70-year-old female patient who follows with Dr. Rodrigues as her primary care physician. She has a history of colon cancer with previous right colectomy, anxiety/depression. She also has a history of severe advanced oxygen-dependent chronic obstructive pulmonary disease and follows in our office for the same. She quit smoking approximately 3 years ago. She has been maintained on Symbicort and albuterol. She developed increasing shortness of breath early yesterday morning and presented to Dr. Rodrigues's office who recommended the patient be seen in the emergency room and was subsequently admitted for COPD exacerbation. Her chest x-ray did not reveal any acute pulmonary process. There is some stable increased opacity in the lung bases secondary to overlying soft tissues. She did present with a temperature of 99.8. No leukocytosis. She is maintaining good O2 saturations in the high 90s on 3 L/m per nasal cannula. She is seen today in consultation on the regular medical floor. She is awake and alert in no acute distress. She states she is a 30 breathing easier today as compared to yesterday. She has a loose productive cough of yellow sputum. Review of Systems 14 point review of system was conducted. All negative other than as mentioned in HPI. Past Medical History Past Medical History: Cancer, COPD, Eye Disorder, Osteoarthritis (OA) Additional Past Medical History / Comment(s): Tracheobronchitis, chronic respiratory failure-O2 at 2L/NC ATC, colon cancer with surgery, sinusitis, macular degeneration L eye, OA bilateral hands, UTIs. History of Any Multi-Drug Resistant Organisms: None Reported Past Surgical History: Bowel Resection, Hysterectomy, Tubal Ligation Additional Past Surgical History / Comment(s): right colectomy for cancer, removal of a fatty tumor from the left side of abdomen/flank, bilateral cataract removal and lens implants, colonoscopy. Past Anesthesia/Blood Transfusion Reactions: Previous Problems w/ Anesthesia Additional Past Anesthesia/Blood Transfusion Reaction / Comment(s): pt stated her oxygen level dropped during colonoscopy 05/2016. Past Psychological History: Anxiety, Depression Additional Psychological History / Comment(s): Pt states her anxiety and depression are stable. She resides alone. She has home O2 at 2L/NC ATC. She uses no assistive devices. She drives. Smoking Status: Former smoker Past Alcohol Use History: None Reported Additional Past Alcohol Use History / Comment(s): Pt started smoking in 1970 and quit in 2014. Past Drug Use History: None Reported - Past Family History Father Family Medical History: Cancer Additional Family Medical History / Comment(s): Father of colon cancer at the age of 71 yrs. Daughter(s) Family Medical History: Cancer Additional Family Medical History / Comment(s): daughter from pancreatic cancer 2013. Mother Family Medical History: No Reported History Additional Family Medical History / Comment(s): Mother was healthy and lived to be 81 yrs old. Medications and Allergies Home Medications Medication Instructions Recorded Confirmed Type ALPRAZolam [Xanax] 0.25 mg PO TID PRN 10/22/16 11/27/16 History Albuterol Nebulized [Ventolin 2.5 mg INHALATION RT-BID 10/22/16 11/27/16 History Nebulized] Budesonide/Formoterol Fumarate 2 puff INHALATION RT-BID 10/22/16 11/27/16 History [Symbicort 160-4.5 Mcg Inhaler] Citalopram Hydrobromide [CeleXA] 20 mg PO DAILY 10/22/16 11/27/16 History Montelukast [Singulair] 10 mg PO DAILY 10/22/16 11/27/16 History Primidone [Primidone] 25 mg PO HS 11/27/16 11/27/16 History Allergies Allergy/AdvReac Type Severity Reaction Status Date / Time No Known Allergies Allergy Verified 10/22/16 13:42 Physical Exam Vitals: Vital Signs Temp Pulse Pulse Resp BP Pulse Ox 11/28/16 12:03 84 11/28/16 11:52 84 11/28/16 08:11 88 11/28/16 07:58 88 11/28/16 07:00 97.9 F 91 18 132/89 99 11/27/16 23:00 97.3 F L 88 16 111/61 98 11/27/16 20:51 89 11/27/16 20:35 89 11/27/16 19:24 92 18 11/27/16 15:37 92 97 11/27/16 14:58 98.1 F 92 18 142/84 97 11/27/16 13:56 98.6 F 95 18 148/85 97 Intake and Output 11/27/16 11/28/16 11/28/16 22:59 06:59 14:59 Intake Total 240 Balance 240 Intake: Oral 240 Other: Voiding Method Toilet Toilet # Voids 1 1 GENERAL EXAM: Alert, comfortable in no apparent distress. HEAD: Normocephalic. EYES: Normal reaction of pupils, equal size. NOSE: Clear with pink turbinates. THROAT: No erythema or exudates. NECK: No masses, no JVD. CHEST: No chest wall deformity. LUNGS: Equal air entry with end expiratory wheeze. Diminished. CVS: S1 and S2 normal with no audible murmurs, regular rhythm. ABDOMEN: No hepatosplenomegaly, normal bowel sounds, no guarding or rigidity. SPINE: No scoliosis or deformity SKIN: No rashes CENTRAL NERVOUS SYSTEM: No focal deficits, tone is normal in all 4 extremities. Extremities: There is no peripheral edema. No clubbing, no cyanosis. Peripheral pulses are intact. Results - Laboratory Findings CBC and BMP: 11/28/16 08:52 11/28/16 08:52 PT/INR, D-dimer PT 10.6 sec (9.0-12.0) 11/27/16 10:55 INR 1.0 (<1.1) 11/27/16 10:55 Abnormal lab findings: Abnormal Labs 11/27/16 11/27/16 11/28/16 17:37 21:02 07:31 RBC Hgb Lymphocytes # Sodium BUN Glucose POC Glucose (mg/dL) 192 H 151 H 144 H 11/28/16 11/28/16 11/28/16 08:52 08:52 12:10 RBC 3.72 L Hgb 11.3 L Lymphocytes # 0.4 L Sodium 136 L BUN 19 H Glucose 170 H POC Glucose (mg/dL) 174 H - Diagnostic Findings Chest x-ray: image reviewed Assessment and Plan Plan: Impression: #1 Acute exacerbation of severe oxygen dependent chronic obstructive pulmonary disease, complicated by purulent tracheobronchitis. #2 History of chronic tobacco dependence, quit approximately 3 years ago. #3 History of colon cancer, status post right colectomy. #4 History of anxiety/depression. Plan: The patient was seen and evaluated by Dr. Yuan. Her chest x-ray and labs were reviewed. We will continue with her current medications including bronchodilators, Symbicort, IV Solu-Medrol, Singulair. She is on empiric antibiotics in the form of Levaquin. Sputum cultures pending. She remains on heparin for DVT prophylaxis and Protonix for GI prophylaxis. We will continue to follow and make further recommendations based on her clinical status.
[2016-11-28 17:08] LABS: Glucose,Whole Blood 169 mg/dL (75-99)
[2016-11-28] MEDS: LEVOFLOXACIN 500MG-D5W PMX 500 MG in DEXTROSE/WATER 1 100ML.BAG IVPB SCH (17:19)
--- NOTE | 2016-11-28 19:23 | PN ---
DATE OF SERVICE: 11/28/2016 This 70-year-old woman was admitted with COPD acute exacerbation with acute purulent tracheobronchitis, improving significantly. No chest pain, no palpitations. No fever. Dr. Yuan's evaluation is in progress at this time. On exam, alert and oriented x3. Pulse 99, blood pressure 120/64, respirations 18, temperature 98.8, pulse ox 97% on 3-L. HEENT: Conjunctivae normal. NECK: No jugular venous distention. CARDIOVASCULAR: S1 and S2, muffled. RESPIRATORY: Breath sounds diminished at the bases. Bilateral scattered rhonchi and crackles. Expiratory wheezing also present. ABDOMEN: Soft, nontender. LEGS: No edema, no swelling. NERVOUS SYSTEM: No focal deficits. LABS: Hemoglobin 11.3. Accu-Cheks noted. ASSESSMENT: 1. Chronic obstructive pulmonary disease acute exacerbation with acute purulent tracheobronchitis. 2. Increased random blood sugar. 3. Mild hyponatremia. 4. History of degenerative joint disease. 5. History of chronic respiratory failure with hypoxic respiratory failure with oxygen 2 liters nasal cannula. 6. History of colon cancer and surgery. 8. History of degenerative joint disease. 9. History of bowel resection. 10. History of anxiety and depression, not otherwise specified. 11. History of nicotine dependence. 12. FULL CODE. RECOMMENDATIONS AND DISCUSSION: In this 70-year-old woman who presented with multiple complex medical issues, we will monitor the patient closely, continue the current medications, continue symptomatic treatment. Will recommend to taper the steroids, continue to monitor. Closely follow with Dr. Yuan. Further recommendations to follow. MTDD
[2016-11-28] MEDS: methylPREDNISolone SOD SUCCI 40 MG/ML 1 ML VIAL IV SCH (20:55)
[2016-11-28] MEDS: MELATONIN 3 MG TABLET PO SCH (20:55)
[2016-11-28] MEDS: PRIMIDONE 25 MG TAB PO SCH (21:00)
[2016-11-28 21:01] LABS: Glucose,Whole Blood 164 mg/dL (75-99)
[2016-11-29] MEDS: methylPREDNISolone SOD SUCCI 40 MG/ML 1 ML VIAL IV SCH ×2 (04:17→13:12)
[2016-11-29 06:58] LABS: Glucose,Whole Blood 135 mg/dL (75-99)
[2016-11-29 07:44] LABS: Basophils % (A) 0 %; CH 30.5; CHCM 31.7; Eosinophils % (A) 0 %; HCT 34.7 % (34.0-46.0); HDW 2.37; HGB 11.1 gm/dL (11.4-16.0); Luc # (Auto) 0.05; Luc % (Auto) 1; Lymphocytes # (A) 0.3 k/uL (1.0-4.8); Lymphocytes % (A) 4 %; MCH 30.9 pg (25.0-35.0); MCV 96.5 fL (80.0-100.0); Mean Platelet Volume 6.6; Monocytes # (A) 0.3 k/uL (0-1.0); Monocytes % (A) 4 %; Neutrophils # (A) 7.1 k/uL (1.3-7.7); Neutrophils % (A) 91 %; RBC 3.59 m/uL (3.80-5.40); RDW 14.2 % (11.5-15.5); WBC 7.8 k/uL (3.8-10.6); WBC (Perox) 8.73
[2016-11-29 07:55] LABS: Anion Gap 8 mmol/L; Blood Urea Nitrogen 24 mg/dL (7-17); Calcium 9.1 mg/dL (8.4-10.2); Carbon Dioxide 28 mmol/L (22-30); Chloride 100 mmol/L (98-107); Glucose 140 mg/dL (74-99); Non-African American GFR(MDRD) >60 (>60 ml/min/1.73 sqM); Potassium 4.6 mmol/L (3.5-5.1); Sodium 136 mmol/L (137-145)
[2016-11-29] MEDS: IPRATROPIUM-ALBUTEROL 3 ML NEB INHALATION SCH ×4 (08:20→20:29)
[2016-11-29] MEDS: SYMBICORT 160-4.5 MCG INHALER INHALATION SCH ×2 (08:20→20:29)
[2016-11-29] MEDS: CITALOPRAM HYDROBROMIDE 20 MG TAB PO SCH (09:33)
[2016-11-29] MEDS: HEPARIN SODIUM,PORCINE 5,000 UNIT/ML 1 ML VIAL SQ SCH ×2 (09:33→21:14)
[2016-11-29] MEDS: INSULIN LISPRO (humaLOG) 300 UNIT/3 ML VIAL SQ SCH ×4 (09:34→21:15)
[2016-11-29] MEDS: MONTELUKAST 10 MG TAB PO SCH (09:34)
[2016-11-29] MEDS: PANTOPRAZOLE 40 MG TABLET PO SCH (09:34)
[2016-11-29] MEDS ORDERED: FLUTICASONE 50MCG/SPRAY NASAL 16GM EA NOSTRIL PRN (12:07)
[2016-11-29 12:30] LABS: Glucose,Whole Blood 114 mg/dL (75-99)
--- NOTE | 2016-11-29 12:41 | P.PN ---
Subjective This is a very pleasant 70-year-old female patient who follows with Dr. Rodrigues as her primary care physician. She has a history of colon cancer with previous right colectomy, anxiety/depression. She also has a history of severe advanced oxygen-dependent chronic obstructive pulmonary disease and follows in our office for the same. She quit smoking approximately 3 years ago. She has been maintained on Symbicort and albuterol. She developed increasing shortness of breath early yesterday morning and presented to Dr. Rodrigues's office who recommended the patient be seen in the emergency room and was subsequently admitted for COPD exacerbation. Her chest x-ray did not reveal any acute pulmonary process. There is some stable increased opacity in the lung bases secondary to overlying soft tissues. She did present with a temperature of 99.8. No leukocytosis. She is maintaining good O2 saturations in the high 90s on 3 L/m per nasal cannula. She is seen again today November 29 2016 on the regular medical floor she is awake and alert in no acute distress. She is breathing easier today as compared to yesterday. She continues with a dry nonproductive cough. No chills or night sweats. She is still dyspneic on minimal exertion. Not quite back to her baseline. Objective - Vital Signs Vital signs: Vital Signs Temp 98.9 F 11/29/16 07:00 Pulse 99 11/29/16 12:00 Resp 18 11/29/16 07:00 BP 157/96 11/29/16 07:00 Pulse Ox 95 11/29/16 07:00 Intake & Output 11/28/16 11/29/16 11/29/16 18:59 06:59 18:59 Intake Total 400 Balance 400 Intake: Oral 400 Other: Voiding Method Toilet # Voids 1 1 # Bowel Movements 0 - Exam GENERAL EXAM: Alert, comfortable in no apparent distress. HEAD: Normocephalic. EYES: Normal reaction of pupils, equal size. NOSE: Clear with pink turbinates. THROAT: No erythema or exudates. NECK: No masses, no JVD. CHEST: No chest wall deformity. LUNGS: Equal air entry with end expiratory wheeze. Diminished. CVS: S1 and S2 normal with no audible murmurs, regular rhythm. ABDOMEN: No hepatosplenomegaly, normal bowel sounds, no guarding or rigidity. SPINE: No scoliosis or deformity SKIN: No rashes CENTRAL NERVOUS SYSTEM: No focal deficits, tone is normal in all 4 extremities. Extremities: There is no peripheral edema. No clubbing, no cyanosis. Peripheral pulses are intact. - Labs CBC & Chem 7: 11/29/16 07:18 11/29/16 07:18 Labs: Abnormal Lab Results - Last 24 Hours (Table) 11/28/16 11/28/16 11/29/16 Range/Units 17:06 20:48 06:57 RBC (3.80-5.40) m/uL Hgb (11.4-16.0) gm/dL Lymphocytes # (1.0-4.8) k/uL Sodium (137-145) mmol/L BUN (7-17) mg/dL Creatinine (0.52-1.04) mg/dL Glucose (74-99) mg/dL POC Glucose (mg/dL) 169 H 164 H 135 H (75-99) mg/dL 11/29/16 11/29/16 11/29/16 Range/Units 07:18 07:18 12:28 RBC 3.59 L (3.80-5.40) m/uL Hgb 11.1 L (11.4-16.0) gm/dL Lymphocytes # 0.3 L (1.0-4.8) k/uL Sodium 136 L (137-145) mmol/L BUN 24 H (7-17) mg/dL Creatinine 0.50 L (0.52-1.04) mg/dL Glucose 140 H (74-99) mg/dL POC Glucose (mg/dL) 114 H (75-99) mg/dL Assessment and Plan Plan: Impression: #1 Acute exacerbation of severe oxygen dependent chronic obstructive pulmonary disease, complicated by purulent tracheobronchitis. #2 History of chronic tobacco dependence, quit approximately 3 years ago. #3 History of colon cancer, status post right colectomy. #4 History of anxiety/depression. Plan: The patient was seen and evaluated by Dr. Yuan. She is not quite ready for discharge today. We will continue with her current medications including bronchodilators, Symbicort, Singulair. She'll be initiated on a prednisone burst taper. She is on empiric antibiotics in the form of Levaquin. Sputum cultures pending. She remains on heparin for DVT prophylaxis and Protonix for GI prophylaxis. We will continue to follow and make further recommendations based on her clinical status.
[2016-11-29] MEDS: predniSONE 20 MG TAB PO SCH (13:17)
[2016-11-29] MEDS: MULTIVITAMINS, THERA 1 EACH TAB PO SCH (13:17)
[2016-11-29 17:11] LABS: Glucose,Whole Blood 118 mg/dL (75-99)
[2016-11-29] MEDS: LEVOFLOXACIN 500MG-D5W PMX 500 MG in DEXTROSE/WATER 1 100ML.BAG IVPB SCH (17:29)
--- NOTE | 2016-11-29 19:32 | PN ---
DATE OF SERVICE: 11/29/2016 This 70-year-old woman who was admitted with COPD acute exacerbation, acute purulent tracheobronchitis is improving significantly. No chest pain or palpitation. No fever. Patient is on IV steroids. On exam, alert and oriented x3. Pulse 101, blood pressure 157/93, respirations 18, temperature 98.9, pulse ox 94% on 2L. HEENT: Conjunctivae normal. Oral mucosa moist. NECK: No jugular venous distension. No carotid bruits. No lymph node enlargement. CARDIOVASCULAR: S1 and S2 muffled. RESPIRATORY: Breath sounds diminished in the bases. Bilateral scattered rhonchi and crackles. Abdomen is soft, nontender. LEGS: No edema. NERVOUS SYSTEM: Nonfocal. Labs are WBC 7.8, hemoglobin is 11.1. Sodium is 136. ASSESSMENT: 1. Chronic obstructive pulmonary disease acute exacerbation with acute purulent tracheobronchitis. 2. Increased random blood sugar. 3. Mild hyponatremia. 4. History of degenerative joint disease. 5. History of chronic respiratory failure with hypoxic respiratory failure with home oxygen 2L via nasal cannula. 6. History of colon cancer and surgery. 7. History of bowel resection. 8. History of anxiety, depression, not otherwise specified. 9. History of nicotine dependence. 10. FULL CODE. 11. Hyponatremia, mild. 12. Anemia, normocytic, anemia of chronic disease. RECOMMENDATIONS AND DISCUSSION: This 70-year-old woman presented with multiple complex medical issues. Will monitor the patient closely. Continue with the current medication. Will taper the steroids. Otherwise, continue the bronchodilators, empiric antibiotics. Closely follow with Dr. Yuan. Guarded prognosis. Further recommendations to follow.
[2016-11-29] MEDS: MELATONIN 3 MG TABLET PO SCH (21:15)
[2016-11-29] MEDS: PRIMIDONE 25 MG TAB PO SCH (21:15)
[2016-11-29 21:21] LABS: Glucose,Whole Blood 209 mg/dL (75-99)
[2016-11-30] MEDS: CITALOPRAM HYDROBROMIDE 20 MG TAB PO SCH (07:56)
[2016-11-30] MEDS: PANTOPRAZOLE 40 MG TABLET PO SCH (07:56)
[2016-11-30] MEDS: predniSONE 20 MG TAB PO SCH (07:56)
[2016-11-30] MEDS: MONTELUKAST 10 MG TAB PO SCH (07:56)
[2016-11-30] MEDS: HEPARIN SODIUM,PORCINE 5,000 UNIT/ML 1 ML VIAL SQ SCH ×2 (07:56→21:12)
[2016-11-30] MEDS: IPRATROPIUM-ALBUTEROL 3 ML NEB INHALATION SCH ×4 (08:03→20:30)
[2016-11-30] MEDS: SYMBICORT 160-4.5 MCG INHALER INHALATION SCH ×2 (08:03→20:30)
[2016-11-30 08:12] LABS: Glucose,Whole Blood 92 mg/dL (75-99)
[2016-11-30] MEDS: INSULIN LISPRO (humaLOG) 300 UNIT/3 ML VIAL SQ SCH ×4 (08:35→21:12)
[2016-11-30 08:48] LABS: Basophils % (A) 0 %; CH 30.9; CHCM 32.4; Eosinophils # (A) 0.1 k/uL (0-0.7); Eosinophils % (A) 1 %; HCT 35.5 % (34.0-46.0); HDW 2.37; HGB 11.3 gm/dL (11.4-16.0); Luc # (Auto) 0.08; Luc % (Auto) 1; Lymphocytes # (A) 1.2 k/uL (1.0-4.8); Lymphocytes % (A) 15 %; MCH 30.5 pg (25.0-35.0); MCHC 31.9 g/dL (31.0-37.0); MCV 95.5 fL (80.0-100.0); Mean Platelet Volume 9.2; Monocytes # (A) 0.6 k/uL (0-1.0); Monocytes % (A) 8 %; Neutrophils # (A) 6.2 k/uL (1.3-7.7); Neutrophils % (A) 76 %; RBC 3.71 m/uL (3.80-5.40); RDW 14.1 % (11.5-15.5); WBC 8.2 k/uL (3.8-10.6); WBC (Perox) 8.69
[2016-11-30 08:55] LABS: Anion Gap 7 mmol/L; Blood Urea Nitrogen 17 mg/dL (7-17); Calcium 9.2 mg/dL (8.4-10.2); Carbon Dioxide 34 mmol/L (22-30); Chloride 97 mmol/L (98-107); Glucose 91 mg/dL (74-99); Non-African American GFR(MDRD) >60 (>60 ml/min/1.73 sqM); Potassium 4.4 mmol/L (3.5-5.1); Sodium 138 mmol/L (137-145)
[2016-11-30] MEDS: MULTIVITAMINS, THERA 1 EACH TAB PO SCH (12:20)
[2016-11-30 12:36] LABS: Glucose,Whole Blood 173 mg/dL (75-99)
--- NOTE | 2016-11-30 14:06 | P.PN ---
Subjective Progress note dated 11/30/2016 The patient is doing much better. She feels much better. Much less short of breath. Hoping to be discharged tomorrow. Denies much in way wheezing. Still coughing. Producing some phlegm. Short of breath when she exerts herself especially. No fever no chills. No nausea vomiting or diarrhea. Objective - Vital Signs Vital signs: Vital Signs Temp 98.1 F 11/30/16 07:00 Pulse 92 11/30/16 12:37 Resp 20 11/30/16 07:00 BP 151/93 11/30/16 07:00 Pulse Ox 99 11/30/16 07:00 Intake & Output 11/29/16 11/30/16 11/30/16 18:59 06:59 18:59 Intake Total 480 100 Balance 480 100 Intake: Oral 480 100 Other: # Voids 4 3 # Bowel Movements 0 - Exam No acute distress, oriented 3. Nasal O2 in place. Sitting at the bedside eating lunch. HEENT examination is grossly unremarkable. Mucous membranes are moist. No oral lesions. Neck supple full range of motion. No adenopathy or thyromegaly. Cardiovascular examination reveals regular rhythm rate. S1-S2 normal. No S3- S4 or murmur. Lungs reveal a few scattered expiratory wheezes or rhonchi. Breath sounds diminished. Slight prolongation on forced maneuver. The patient does cough and wheezes on forced maneuver. Abdomen soft bowel sounds are heard. Extremities are intact. No cyanosis clubbing or edema. - Labs CBC & Chem 7: 11/30/16 07:25 11/30/16 07:25 Labs: Abnormal Lab Results - Last 24 Hours (Table) 11/29/16 11/29/16 11/30/16 Range/Units 17:07 21:09 07:25 RBC 3.71 L (3.80-5.40) m/uL Hgb 11.3 L (11.4-16.0) gm/dL Chloride (98-107) mmol/L Carbon Dioxide (22-30) mmol/L Creatinine (0.52-1.04) mg/dL POC Glucose (mg/dL) 118 H 209 H (75-99) mg/dL 11/30/16 11/30/16 Range/Units 07:25 12:27 RBC (3.80-5.40) m/uL Hgb (11.4-16.0) gm/dL Chloride 97 L (98-107) mmol/L Carbon Dioxide 34 H (22-30) mmol/L Creatinine 0.49 L (0.52-1.04) mg/dL POC Glucose (mg/dL) 173 H (75-99) mg/dL Assessment and Plan (1) COPD exacerbation Status: Acute (2) Acute exacerbation of chronic obstructive airways disease Status: Acute Plan: Plan dated 11/30/2016 The patient is doing better. We'll continue on the current medication regimen. Patient continues on oxygen therapy. Hopefully discharge in next 24 hours or so. She seemed to be doing better. Still very dyspneic with any activity.
[2016-11-30] MEDS ORDERED: LEVOFLOXACIN 500 MG TAB PO SCH (17:00)
[2016-11-30 17:28] LABS: Glucose,Whole Blood 121 mg/dL (75-99)
[2016-11-30 21:05] LABS: Glucose,Whole Blood 139 mg/dL (75-99)
[2016-11-30] MEDS: MELATONIN 3 MG TABLET PO SCH (21:12)
[2016-11-30] MEDS: PRIMIDONE 25 MG TAB PO SCH (21:12)
[2016-12-01 07:39] LABS: Glucose,Whole Blood 86 mg/dL (75-99)
[2016-12-01 07:50] VITALS: BP 130/82; RESP 20; TEMP 98
[2016-12-01] MEDS: SYMBICORT 160-4.5 MCG INHALER INHALATION SCH (08:02)
[2016-12-01] MEDS: IPRATROPIUM-ALBUTEROL 3 ML NEB INHALATION SCH ×2 (08:02→11:56)
[2016-12-01] MEDS: INSULIN LISPRO (humaLOG) 300 UNIT/3 ML VIAL SQ SCH ×2 (09:07→12:29)
--- NOTE | 2016-12-01 09:15 | PN ---
DATE OF SERVICE: 11/30/2016 This is a 70-year-old woman who was admitted with COPD acute exacerbation with acute purulent tracheobronchitis, has improved significantly, steroids have been tapered. No chest pain or palpitation. No fever. Occasional cough is reported. Dr. Yuan is following the patient closely. On exam, alert and oriented x3. Pulse 92, blood pressure 122/79, respirations 20, temperature is 97.9, pulse ox 98% on 2 L. HEENT: Conjunctive normal. NECK: No jugular venous distension. CARDIOVASCULAR SYSTEM: S1, S2, muffled. RESPIRATORY: Breath sounds ARE diminished at the bases, a few scattered rhonchi, no crackles, expiratory wheezing also present. ABDOMEN: Soft, nontender. EXTREMITIES: Legs no edema, no swelling. NERVOUS SYSTEM: No focal deficits. LABS: WBC 8.2, hemoglobin is 11.3. Accu-Cheks are noted. ASSESSMENT: 1. Chronic obstructive pulmonary disease acute exacerbation, with acute purulent tracheobronchitis. 2. Increased random blood sugar. 3. Mild hyponatremia. 4. History of degenerative joint disease. 5. History of chronic respiratory failure with hypoxic respiratory failure with home oxygen 2 L nasal cannula. 6. History of colon cancer with surgery. 7. History of bowel resection. 8. Anxiety, depression, not otherwise specified. 9. History of nicotine dependence. 10. Hyponatremia, mild. 11. Anemia, normocytic anemia of chronic disease. 12. FULL CODE. RECOMMENDATION: Recommend to continue with the current medications, continue with the symptomatic treatment, continue with the bronchodilators, empiric antibiotics and steroids. Closely follow with Dr. Yuan. Further recommendations to follow. [facility], [place]
[2016-12-01 09:24] LABS: Basophils % (A) 1 %; CH 30.4; CHCM 31.3; Eosinophils # (A) 0.1 k/uL (0-0.7); Eosinophils % (A) 1 %; HCT 39.8 % (34.0-46.0); HDW 2.34; HGB 12.2 gm/dL (11.4-16.0); Hypochromasia Slight; Luc # (Auto) 0.11; Luc % (Auto) 2; Lymphocytes # (A) 1.5 k/uL (1.0-4.8); Lymphocytes % (A) 22 %; MCH 29.7 pg (25.0-35.0); MCHC 30.5 g/dL (31.0-37.0); MCV 97.2 fL (80.0-100.0); Mean Platelet Volume 6.7; Monocytes # (A) 0.4 k/uL (0-1.0); Monocytes % (A) 6 %; Neutrophils # (A) 4.4 k/uL (1.3-7.7); Neutrophils % (A) 68 %; RDW 14.1 % (11.5-15.5); WBC 6.5 k/uL (3.8-10.6); WBC (Perox) 7.05
[2016-12-01] MEDS: PANTOPRAZOLE 40 MG TABLET PO SCH (09:38)
[2016-12-01] MEDS: predniSONE 20 MG TAB PO SCH (09:38)
[2016-12-01] MEDS: HEPARIN SODIUM,PORCINE 5,000 UNIT/ML 1 ML VIAL SQ SCH (09:38)
[2016-12-01] MEDS: MONTELUKAST 10 MG TAB PO SCH (09:38)
[2016-12-01] MEDS: CITALOPRAM HYDROBROMIDE 20 MG TAB PO SCH (09:38)
[2016-12-01 09:39] LABS: Anion Gap 10 mmol/L; Blood Urea Nitrogen 19 mg/dL (7-17); Calcium 9.3 mg/dL (8.4-10.2); Carbon Dioxide 35 mmol/L (22-30); Chloride 93 mmol/L (98-107); Glucose 128 mg/dL (74-99); Non-African American GFR(MDRD) >60 (>60 ml/min/1.73 sqM); Potassium 4.6 mmol/L (3.5-5.1); Sodium 138 mmol/L (137-145)
[2016-12-01 12:09] VITALS: PULSE 88
[2016-12-01] MEDS: MULTIVITAMINS, THERA 1 EACH TAB PO SCH (12:09)
[2016-12-01 12:41] LABS: Glucose,Whole Blood 106 mg/dL (75-99)
--- NOTE | 2016-12-01 17:13 | DS ---
DATE OF ADMISSION: 11/27/2016 DATE OF DISCHARGE: 12/01/2016 FINAL DIAGNOSES: 1. Chronic obstructive pulmonary disease, acute exacerbation, with acute purulent tracheobronchitis. 2. Increased random blood sugar. 3. Mild hyponatremia. 4. History of degenerative joint disease. 5. History of chronic obstructive hypoxic respiratory failure 2 liters nasal cannula. 6. History of colon cancer surgery. 7. History of bowel resection. 8. Anxiety and depression, not otherwise specified. 9. History of nicotine dependence. 10. Hyponatremia, mild. 11. Anemia, normocytic anemia of chronic disease. 12. FULL CODE. DISCHARGE DISPOSITION: The patient will be discharged in a stable condition with guarded prognosis. Discharge cleared by pulmonary, Dr. Webster. HISTORY OF PRESENT ILLNESS: This 70-year-old woman with a past medical history of multiple medical problems, acute COPD exacerbation, tracheobronchitis, the patient treated with bronchodilators, steroids and antibiotics. The patient improved significantly. Dr. Webster and Dr. Yuan saw the patient. DISCHARGE ADVICE AND MEDICATIONS: 1. Diet is cardiac. 2. Activity limited until follow-up. 3. Follow-up with Dr. Rodrigues in 2 to 3 days. 4. Follow with Dr. Yuan as advised. 5. Xanax 0.25 t.i.d. p.r.n. 6. Tylenol 650 q.6 p.r.n. 7. Symbicort 2 puffs b.i.d. 8. Celexa 20 mg daily. 9. Albuterol Atrovent q.i.d. and p.r.n. 10. Levaquin 500 mg daily for 5 days. 11. Singulair 10 mg p.o. daily. 12. Multi-vitamins one p.o. daily. 13. Prednisone taper will be 40 mg daily for 3 days; 20 mg daily for three days, 10 mg daily for 3 days.
== END 2016-12-01 15:07 | disposition home or self-care (01) | DRG 191 ==
LOC: EC 10:04 → 4MS4W 12:29
PROVIDERS: ADMIT Hospitalist; ATTEND Hospitalist
DX: J44.0 Chronic obstructive pulmonary disease with (acute) lower respiratory infection (principal); J96.11 Chronic respiratory failure with hypoxia; Z99.81 Dependence on supplemental oxygen; E87.1 Hypo-osmolality and hyponatremia; D63.8 Anemia in other chronic diseases classified elsewhere; F32.9 Major depressive disorder, single episode, unspecified; F41.1 Generalized anxiety disorder; J20.9 Acute bronchitis, unspecified; J44.1 Chronic obstructive pulmonary disease with (acute) exacerbation; M19.041 Primary osteoarthritis, right hand; M19.042 Primary osteoarthritis, left hand; H35.30 Unspecified macular degeneration; R25.1 Tremor, unspecified; M19.90 Unspecified osteoarthritis, unspecified site; Z87.891 Personal history of nicotine dependence; Z85.038 Personal history of other malignant neoplasm of large intestine; Z90.49 Acquired absence of other specified parts of digestive tract; Z90.710 Acquired absence of both cervix and uterus; Z98.42 Cataract extraction status, left eye; Z98.41 Cataract extraction status, right eye; Z96.1 Presence of intraocular lens; Z79.51 Long term (current) use of inhaled steroids; Z79.899 Other long term (current) drug therapy
CPT/HCPCS: 36415; 71020; 80048; 80053; 82550; 82553; 83036; 83605; 83735; 84484; 85025; 85610; 85730; 87040; 93005; 94640; 96361; 96374; 96375; 99285

== ENCOUNTER → 2017-02-03 | Outpatient (CLI) | payer MEDICARE ==
--- NOTE | 2017-02-04 10:48 | MM ---
Reason for exam: screening (asymptomatic). Last mammogram was performed 1 year ago. History: Patient is postmenopausal and has history of colon cancer at age 70. Physical Findings: A clinical breast exam by your physician is recommended on an annual basis and results should be correlated with mammographic findings. MG 3D Screening Mammo W/Cad Bilateral CC and MLO view(s) were taken. Prior study comparison: January 30, 2016, bilateral MG screening mammo w CAD. January 13, 2015, bilateral MG screening mammo w CAD. The breast tissue is extremely dense which could obscure a lesion on mammography. Benign calcifications. No significant changes when compared with prior studies. ASSESSMENT: Benign, BI-RAD 2 RECOMMENDATION: Routine screening mammogram of both breasts in 1 year.
== END ==
LOC: RADMAMWWP 09:33
PROVIDERS: ATTEND Internal Medicine
DX: Z12.31 Encounter for screening mammogram for malignant neoplasm of breast (principal)
CPT/HCPCS: 77063; G0202

== ENCOUNTER → 2018-02-18 | Outpatient (CLI) | payer MEDICARE ==
--- NOTE | 2018-02-19 10:10 | MM ---
Reason for exam: screening (asymptomatic). Last mammogram was performed 1 year ago. History: Patient is postmenopausal and has history of colon cancer at age 70. Physical Findings: A clinical breast exam by your physician is recommended on an annual basis and results should be correlated with mammographic findings. MG Screening Mammo w CAD Bilateral CC and MLO view(s) were taken. Prior study comparison: February 03, 2017, bilateral MG 3d screening mammo w/cad. January 30, 2016, bilateral MG screening mammo w CAD. The breast tissue is heterogeneously dense. This may lower the sensitivity of mammography. Stable benign calcifications. There is no discrete abnormality. No significant changes when compared with prior studies. ASSESSMENT: Benign, BI-RAD 2 RECOMMENDATION: Routine screening mammogram of both breasts in 1 year.
== END | disposition home or self-care (01) ==
LOC: RADMAMWWP 10:59
PROVIDERS: ATTEND Internal Medicine
DX: Z12.31 Encounter for screening mammogram for malignant neoplasm of breast (principal)
CPT/HCPCS: 77067

== ENCOUNTER 2018-06-04 23:31 | Emergency (ER) | payer MEDICARE ==
[2018-06-05 00:12] LABS: Amorphous Sediment,Urine Rare /hpf; Appearance,Urine Cloudy (Clear); Bilirubin,Urine Negative (Negative); Blood,Urine Large (Negative); Color,Urine Yellow; Glucose,Urine (UA) 1+ (Negative); Ketones,Urine Negative (Negative); Leukocyte Esterase,Urine Negative (Negative); Mucus,Urine Rare /hpf; Nitrite,Urine Negative (Negative); Protein,Urine Trace (Negative); RBC,Urine >182 /hpf (0-5); Specific Gravity,Urine 1.014 (1.001-1.035); WBC,Urine 7 /hpf (0-5)
[2018-06-05] MEDS ORDERED: ONDANSETRON 4 MG/2 ML VIAL IVP STA (01:06)
[2018-06-05] MEDS ORDERED: SODIUM CHLORIDE 0.9% 1,000 ML IV STA (01:06)
[2018-06-05] MEDS ORDERED: ACETAMINOPHEN TAB 500 MG TAB PO STA (01:07)
--- NOTE | 2018-06-05 02:01 | CT ---
EXAMINATION TYPE: CT abdomen pelvis wo con DATE OF EXAM: 06/05/2018 COMPARISON: None HISTORY: lower abdominal pain/left groin pain with nausea CT DLP: 217.60 mGycm Automated exposure control for dose reduction was used. TECHNIQUE: Helical acquisition of images was performed from the lung bases through the pelvis. FINDINGS: There is diffuse pulmonary emphysema at the lung bases. There is no pleural effusion. Heart size is n ormal. There is 2 cm cyst in the anterior right lobe of the liver. Spleen appears normal. There is no eviden ce of pancreatic mass. Gallbladder appears normal. Bile ducts are not dilated. There are multiple agustín gical clips in the right upper quadrant. There is no adrenal mass. There is left-sided hydronephrosis with mild perinephric edema. I see no de finite retroperitoneal adenopathy. Bladder distends smoothly. I see no intestinal wall thickening. Th ere are no dilated loops. There is no evidence of a bowel obstruction. Abdominal aorta is atheromatou s. There is L5 spondylolysis. There are second-degree L5-S1 spondylolisthesis. There is osteopenia. IMPRESSION: ATHEROSCLEROTIC VASCULAR DISEASE. LEFT-SIDED HYDRONEPHROSIS AND HYDROURETER. NO OBSTRUCTING CALCULUS SEEN. FOLLOW-UP IS RECOMMENDED. SECOND-DEGREE L5-S1 SPONDYLOLISTHESIS. RETROGRADE UROGRAM MIGHT BE HELPFUL FOR FURTHER EVALUATION IF CLINICALLY INDICATED. PULMONARY EMPHYSEMA.
[2018-06-05 02:02] LABS: Basophils # (A) 0.1 k/uL (0-0.2); Basophils % (A) 1 %; Eosinophils % (A) 1 %; HCT 44.2 % (34.0-46.0); HGB 14.4 gm/dL (11.4-16.0); Lymphocytes # (A) 0.4 k/uL (1.0-4.8); Lymphocytes % (A) 5 %; MCH 31.3 pg (25.0-35.0); MCHC 32.6 g/dL (31.0-37.0); MCV 96.2 fL (80.0-100.0); Mean Platelet Volume 7.4; Monocytes # (A) 0.4 k/uL (0-1.0); Monocytes % (A) 5 %; Neutrophils # (A) 6.3 k/uL (1.3-7.7); Neutrophils % (A) 87 %; Platelet Count 285 k/uL (150-450); RDW 12.3 % (11.5-15.5); WBC 7.2 k/uL (3.8-10.6)
--- NOTE | 2018-06-05 02:03 | XR ---
EXAMINATION TYPE: XR KUB DATE OF EXAM: 06/05/2018 COMPARISON: NONE HISTORY: Abdominal pain TECHNIQUE: 2 views upright FINDINGS: There is no sign of intestinal obstruction or pneumoperitoneum. Fecal pattern is normal. Jyothi ng bases are clear. There are no pathologic calcifications over the kidneys. IMPRESSION: Nonacute abdomen.
[2018-06-05 02:15] LABS: ALT 37 U/L (9-52); AST 33 U/L (14-36); Albumin 4.2 g/dL (3.5-5.0); Alkaline Phosphatase 83 U/L (38-126); Amylase 69 U/L (30-110); Anion Gap 7 mmol/L; Blood Urea Nitrogen 17 mg/dL (7-17); Calcium 9.8 mg/dL (8.4-10.2); Carbon Dioxide 33 mmol/L (22-30); Chloride 99 mmol/L (98-107); Glucose 172 mg/dL (74-99); Lipase 65 U/L (23-300); Potassium 4.7 mmol/L (3.5-5.1); Sodium 139 mmol/L (137-145); Total Bilirubin 0.5 mg/dL (0.2-1.3); Total Protein 7.6 g/dL (6.3-8.2)
--- NOTE | 2018-06-05 02:22 | ED ---
General Adult HPI - General Source: patient Mode of arrival: wheelchair Limitations: no limitations <Inderjit Hunt P - Last Filed: 06/05/18 03:27> <Daniella Lam P - Last Filed: 06/06/18 06:43> - General Chief complaint: Urogenital Stated complaint: Pelvic Pain Time Seen by Provider: 06/05/18 00:08 - History of Present Illness Initial comments: 72-year-old female with a history of COPD and hypoxemia presents to the emergency department for a chief complaint of left groin pain associated with mild nausea times 1-2 days. Patient states the pain starts in her left low back and radiates down into her left groin. Patient describes the pain as a sharp pain. Patient denies pain on the right side. Patient admits to mild nausea but denies vomiting. Patient denies diarrhea and states she has been having normal bowel movements. Patient has not taken anything for pain. Patient denies history of kidney stones. Patient currently rates her pain at an 8 out of 10 and requests Tylenol for pain.Patient has no other complaints at this time including shortness of breath, chest pain, abdominal pain, nausea or vomiting, headache, or visual changes. (Inderjit Hunt) - Related Data Home Medications Medication Instructions Recorded Confirmed ALPRAZolam [Xanax] 0.25 mg PO TID PRN 10/22/16 10/08/17 Budesonide/Formoterol Fumarate 2 puff INHALATION RT-BID 10/22/16 10/08/17 [Symbicort 160-4.5 Mcg Inhaler] Citalopram Hydrobromide [CeleXA] 20 mg PO DAILY 10/22/16 10/08/17 Montelukast [Singulair] 10 mg PO DAILY 10/22/16 10/08/17 Ipratropium-Albuterol Nebulize 3 ml INHALATION RT-QID 10/08/17 10/08/17 [Duoneb 0.5 mg-3 mg/3 ml Soln] Primidone [Mysoline] 50 mg PO DAILY 10/08/17 10/08/17 Vit C/E/Zn/Coppr/Lutein/Zeaxan 1 cap PO BID 10/08/17 10/08/17 [Preservision Areds 2 Softgel] Previous Rx's Medication Instructions Recorded Cefuroxime Axetil [Ceftin] 500 mg PO BID #10 tab 10/10/17 predniSONE 10 mg PO DIRECTED #30 tab 10/10/17 Ondansetron [Zofran ODT] 4 mg PO Q8HR PRN #15 tab 06/05/18 Allergies Allergy/AdvReac Type Severity Reaction Status Date / Time amoxicillin AdvReac Itching Verified 06/05/18 00:00 Review of Systems ROS Other: All systems not noted in ROS Statement are negative. <Inderjit Hunt P - Last Filed: 06/05/18 03:27> ROS Other: All systems not noted in ROS Statement are negative. <Daniella Lam P - Last Filed: 06/06/18 06:43> ROS Statement: Those systems with pertinent positive or pertinent negative responses have been documented in the HPI. Past Medical History Past Medical History: Cancer, COPD, Eye Disorder, Osteoarthritis (OA) Additional Past Medical History / Comment(s): Tracheobronchitis, chronic respiratory failure-O2 at 2L/NC ATC, colon cancer with surgery, sinusitis, macular degeneration L eye, OA bilateral hands, UTIs. History of Any Multi-Drug Resistant Organisms: None Reported Past Surgical History: Bowel Resection, Hysterectomy, Tubal Ligation Additional Past Surgical History / Comment(s): Right colectomy for cancer, removal of a fatty tumor from the left side of abdomen/flank, bilateral cataract removal and lens implants, colonoscopy. Past Anesthesia/Blood Transfusion Reactions: Previous Problems w/ Anesthesia Additional Past Anesthesia/Blood Transfusion Reaction / Comment(s): Pt stated her oxygen level dropped during colonoscopy 05/2016. Past Psychological History: Anxiety, Depression Smoking Status: Former smoker Past Alcohol Use History: None Reported Past Drug Use History: None Reported - Past Family History Father Family Medical History: Cancer Additional Family Medical History / Comment(s): Father of colon cancer at the age of 71 yrs. Daughter(s) Family Medical History: Cancer Additional Family Medical History / Comment(s): Daughter from pancreatic cancer 2013. Mother Family Medical History: No Reported History Additional Family Medical History / Comment(s): Mother was healthy and lived to be 81 yrs old. <Inderjit Hunt P - Last Filed: 06/05/18 03:27> General Exam Limitations: no limitations General appearance: alert, in no apparent distress Head exam: Present: atraumatic, normocephalic, normal inspection Eye exam: Present: normal appearance, PERRL, EOMI. Absent: scleral icterus, conjunctival injection, periorbital swelling ENT exam: Present: normal exam, mucous membranes moist Neck exam: Present: normal inspection, full ROM. Absent: tenderness, meningismus, lymphadenopathy Respiratory exam: Present: normal lung sounds bilaterally. Absent: respiratory distress, wheezes, rales, rhonchi, stridor Cardiovascular Exam: Present: regular rate, normal rhythm, normal heart sounds. Absent: systolic murmur, diastolic murmur, rubs, gallop, clicks GI/Abdominal exam: Present: soft, normal bowel sounds. Absent: distended, tenderness, guarding, rebound, rigid Extremities exam: Present: full ROM (Full range of motion of the lower extremities bilaterally, sensation intact in lower extremities bilaterally), normal capillary refill (Capillary refill less than 2 seconds in lower extremities) Back exam: Absent: CVA tenderness (R), CVA tenderness (L) Neurological exam: Present: alert, oriented X3, CN II-XII intact Psychiatric exam: Present: normal affect, normal mood <Inderjit Hunt P - Last Filed: 06/05/18 03:27> Vital Signs 06/04/18 06/05/18 06/05/18 23:58 01:52 03:13 Temperature 98.2 F 98.5 F 98.3 F Pulse Rate 103 H 102 H 98 Respiratory 18 18 17 Rate Blood Pressure 143/82 161/86 154/90 O2 Sat by Pulse 90 L 98 96 Oximetry EKG Findings - EKG Comments: EKG Findings:: Normal sinus rhythm, ventricular rate 96, TX interval 122, QRS duration 68, no evidence of ST elevation or depression <Inderjit Hunt P - Last Filed: 06/05/18 03:27> Medical Decision Making - Lab Data Result diagrams: 06/05/18 01:50 06/05/18 01:50 <Inderjit Hunt P - Last Filed: 06/05/18 03:27> - Lab Data Result diagrams: 06/05/18 01:50 06/05/18 01:50 <Daniella Lam P - Last Filed: 06/06/18 06:43> - Medical Decision Making 72-year-old female presents to the emergency department for a chief complaint of left lower back pain radiating to the left groin x 2 days. Patient also admits to mild nausea without vomiting. Patient denies history of kidney stone. Patient denies dysuria or fevers at home. Patient is slightly tachycardic in the emergency department which she states is normal for her. EKG showed a normal sinus rhythm. CBC and CMP unremarkable. Patient does have a carbon dioxide of 33 however has chronic COPD and is on oxygen at home. Urine shows greater than 182 red blood cells with large blood. No evidence of infection. CT abdomen shows atherosclerotic vascular disease. Left-sided hydronephrosis and hydroureter. No obstructing calculus seen. Patient likely experiencing renal colic and has most likely passed a stone due to blood in urine as well as left-sided hydronephrosis. Patient denies any difficulty urinating. At this time patient is feeling better with Tylenol. Patient agrees to go home and take Tylenol and Zofran. She will follow up with urology and primary care in 1-2 days. Patient aware to return to the emergency Department if she has any worsening symptoms. (Inderjit Hunt) I was available for consultation in the emergency department. The history and physical exam were done by the midlevel provider. I was consulted for this patient's care. I reviewed the case with the midlevel provider and based on their presentation of the patient, I agree with the assessment, medical decision making and plan of care as documented. (Daniella Lam) - Lab Data Lab Results 06/04/18 06/05/18 06/05/18 Range/Units 23:54 01:50 01:50 WBC 7.2 (3.8-10.6) k/uL RBC 4.60 (3.80-5.40) m/uL Hgb 14.4 (11.4-16.0) gm/dL Hct 44.2 (34.0-46.0) % MCV 96.2 (80.0-100.0) fL MCH 31.3 (25.0-35.0) pg MCHC 32.6 (31.0-37.0) g/dL RDW 12.3 (11.5-15.5) % Plt Count 285 (150-450) k/uL Neutrophils % 87 % Lymphocytes % 5 % Monocytes % 5 % Eosinophils % 1 % Basophils % 1 % Neutrophils # 6.3 (1.3-7.7) k/uL Lymphocytes # 0.4 L (1.0-4.8) k/uL Monocytes # 0.4 (0-1.0) k/uL Eosinophils # 0.0 (0-0.7) k/uL Basophils # 0.1 (0-0.2) k/uL Sodium 139 (137-145) mmol/L Potassium 4.7 (3.5-5.1) mmol/L Chloride 99 (98-107) mmol/L Carbon Dioxide 33 H (22-30) mmol/L Anion Gap 7 mmol/L BUN 17 (7-17) mg/dL Creatinine 0.60 (0.52-1.04) mg/dL Est GFR (CKD-EPI)AfAm >90 (>60 ml/min/1.73 sqM) Est GFR (CKD-EPI)NonAf >90 (>60 ml/min/1.73 sqM) Glucose 172 H (74-99) mg/dL Calcium 9.8 (8.4-10.2) mg/dL Total Bilirubin 0.5 (0.2-1.3) mg/dL AST 33 (14-36) U/L ALT 37 (9-52) U/L Alkaline Phosphatase 83 (38-126) U/L Total Protein 7.6 (6.3-8.2) g/dL Albumin 4.2 (3.5-5.0) g/dL Amylase 69 (30-110) U/L Lipase 65 (23-300) U/L Urine Color Yellow Urine Appearance Cloudy H (Clear) Urine pH 7.0 (5.0-8.0) Ur Specific Regent 1.014 (1.001-1.035) Urine Protein Trace H (Negative) Urine Glucose (UA) 1+ H (Negative) Urine Ketones Negative (Negative) Urine Blood Large H (Negative) Urine Nitrite Negative (Negative) Urine Bilirubin Negative (Negative) Urine Urobilinogen 2.0 (<2.0) mg/dL Ur Leukocyte Esterase Negative (Negative) Urine RBC >182 H (0-5) /hpf Urine WBC 7 H (0-5) /hpf Amorphous Sediment Rare H (None) /hpf Urine Mucus Rare H (None) /hpf Disposition Is patient prescribed a controlled substance at d/c from ED?: No Time of Disposition: 02:58 <Inderjit Hunt P - Last Filed: 06/05/18 03:27> <Daniella Lam P - Last Filed: 06/06/18 06:43> Clinical Impression: Renal colic on left side Disposition: HOME SELF-CARE Condition: Good Instructions: Renal Colic (ED) Additional Instructions: Please take Tylenol for pain. Please take Zofran for nausea. Follow up with primary care provider in urology in 1-2 days. Return to the emergency department if you have any worsening symptoms. Prescriptions: Ondansetron [Zofran ODT] 4 mg PO Q8HR PRN #15 tab PRN Reason: Nausea Referrals: Jennifer Rodrigues MD [Primary Care Provider] - 1-2 days
[2018-06-05 03:14] VITALS: BP 154/90; PULSE 98; RESP 17; TEMP 98.3
== END 2018-06-05 03:40 | disposition home or self-care (01) ==
LOC: EC 23:31
DX: N23 Unspecified renal colic (principal); N13.4 Hydroureter; N13.30 Unspecified hydronephrosis; J44.9 Chronic obstructive pulmonary disease, unspecified; M19.90 Unspecified osteoarthritis, unspecified site; F41.9 Anxiety disorder, unspecified; F32.9 Major depressive disorder, single episode, unspecified; J96.10 Chronic respiratory failure, unspecified whether with hypoxia or hypercapnia; Z87.891 Personal history of nicotine dependence; Z85.038 Personal history of other malignant neoplasm of large intestine; Z90.49 Acquired absence of other specified parts of digestive tract; Z90.710 Acquired absence of both cervix and uterus; Z98.51 Tubal ligation status; Z98.890 Other specified postprocedural states; Z79.51 Long term (current) use of inhaled steroids; Z79.899 Other long term (current) drug therapy
CPT/HCPCS: 36415; 93005; 80053; 82150; 83690; 85025; 81001; 87086; 74018; 74176; 99284; 96374; 96361; J2405